=== PATIENT | female | born 1950 | race Caucasian/White ===

== ENCOUNTER 2017-12-11 11:25 | Outpatient (RCR) | payer MEDICARE, OTHER ==
[2017-12-07 08:47] VITALS: BP 137/68
[2017-12-07] MEDS: HEPARIN FLSH (PORT) 500 UN/5ML IVP PRN (09:15)
[2017-12-07] MEDS: LIDOCAINE/SOD BICARB 8.4% SYR ID PRN (09:15)
--- NOTE | 2017-12-07 16:54 | RADIOLOGY IMAGING REPORT ---
FACILITY: [facility] PATIENT NAME: Mavis Owusu : 1950 MR: [id number] V: [id number] EXAM DATE: ORDERING PHYSICIAN: CAT COSTA TECHNOLOGIST: Location: [facility] Patient: Mavis Owusu : 1950 Visit/Account:[id number] Date of Sevice: 12/07/2017 CHEST W/O CONTRAST History: Lung cancer TECHNIQUE: Contiguous axial images were performed through the chest to the level of the adrenal gla nds. No IV contrast was administered. Coronal and sagittal reformatting was also performed. Dose Lowe ring Technique One of the following dose optimization techniques was utilized in the performance of this exam: Autom ated exposure control; adjustment of the mA and/or kV according to the patient's size; or use of an i terative reconstruction technique. Specific details can be referenced in the facility's radiology C T exam operational policy. COMPARISON STUDIES: September 08, 2017. Lungs / Pleura: The irregular scarring in the right lung apex appears unchanged and represents the patient's treated malignancy. No new pulmonary masses are identified. No evidence of pleural effusi ons. There are mild emphysematous changes throughout the lungs. There is chronic wedge-shaped conso lidation in the medial lingula unchanged Mediastinum/nodes: Right IJ implanted port again noted. Heart and vessels: Coronary artery calcifications again noted. Mild to moderate calcifications in t he thoracic aorta and branch vessels Musculoskeletal / Body wall: Gentle dextroconvex scoliosis of the thoracic spine with spondylotic c hanges. Mild wedge deformity of T12 appears unchanged. There appears to be healing rib fracture ant erior left fifth rib appears unchanged. Upper abdomen: Hypoattenuating adrenal masses appear unchanged. There is a small sacculation in th e infrarenal abdominal aorta not included on the prior study IMPRESSION: Irregular scarring in the right lung apex appears unchanged when compared the prior study and represe nts the patient's treated malignancy. No new pulmonary masses are identified. Mild emphysematous changes but the lungs Chronic wedge-shaped consolidation in the medial lingula unchanged Mild to moderate vascular callus occasions throughout the aorta and branch vessels including the caitie nary arteries Hypoattenuating adrenal masses appear unchanged Report Dictated By: Gloria Squires MD at 12/07/2017 4:40 PM Report E-Signed By: Gloria Squires MD at 12/07/2017 4:50 PM WSN:[email or web address]
[~2017-12-11 11:25] MED LIST: ALTEPLASE RECOMB 2 MG VIAL IVP PRN; ASPI-757 PO; CEP250 PO; CEP500 PO; CORED RIGHT EAR; DEX4 PO; DEXA2TAB7 PO; DEXTROSE 5%(*) 100 ML BAG 100 ML IVPB PRN; GABA-549 PO; HYDR-385 PO; LEVO25TA61 PO; LEVO50TA86 PO; LEVO75TA73 PO; LORA-1456 PO; LUTE6CAP11 PO; LUTE6TAB PO; MEMA5TAB14 PO; METO-733 PO; NS(*) 0.9% 100 ML BAG 100 ML IVPB PRN; NS(*) 0.9% 500 ML BAG 500 ML IV PRN; ONDA8TAB91 PO; PYRI25TA18 PO; SULF-170 PO; WATER STERILE 10 ML VIAL IVP PRN
[2017-12-11 11:32] VITALS: BP 123/79
[2017-12-11] MEDS: LIDOCAINE/SOD BICARB 8.4% SYR ID PRN (11:46)
[2017-12-11] MEDS: HEPARIN FLSH (PORT) 500 UN/5ML IVP PRN (14:22)
--- NOTE | 2017-12-11 16:08 | RADIOLOGY IMAGING REPORT ---
FACILITY: [facility] PATIENT NAME: Mavis Owusu : 1950 MR: [id number] V: [id number] EXAM DATE: ORDERING PHYSICIAN: CAT COSTA TECHNOLOGIST: Location: [facility] Patient: Mavis Owusu : 1950 Visit/Account:[id number] Date of Sevice: 12/11/2017 EXAMINATION: MRI brain without IV contrast MRI brain with IV contrast HISTORY: Lung cancer follow-up. COMPARISON: Brain MRIs from 03/02/2017 and 09/10/2017. TECHNIQUE: Multi-planar, multi-sequence brain MRI was performed before and after IV gadolinium. CONTRAST: 15 mL of IV MultiHance gadolinium. FINDINGS: The exam is mildly limited by patient motion artifact. Brain volume: Mild generalized atrophy with associated concordant prominence of the ventricular syst em. Sagittal midline structures: Normal. Ventricles: Normal. Acute ischemic changes: None. Hemorrhage: Mild hemosiderin staining in the left cerebellar lesion is unchanged. Masses/edema/enhancement: There is intrinsic T1 hyperintensity in the left medial cerebellum at site of previously treated metastasis. There is no focal abnormal enhancement outside the T1 hyperintens ity. No adjacent T2/FLAIR hyperintensity. There are no new enhancing intracranial lesions. Small d evelopmental venous anomaly in the right basal ganglia is unchanged. Shaw-white: Negative. White matter: Patchy and confluent T2/FLAIR hyperintensities in the leigh ann and deep white matter bilat erally. Vessels: Normal. Extra-axial: None. Calvarium/scalp: Negative. Skull base: Negative. Visualized sinuses/orbits: Negative. Visualized upper neck: Negative. IMPRESSION: 1. Treated left cerebellar metastasis is unchanged, without residual enhancement. 2. No progression of disease or new intracranial metastases. 3. Moderate to severe nonspecific white matter disease could be due to chronic small vessel ischemia and/or treatment-related effect, and is unchanged. 4. No acute infarct or acute hemorrhage. Report Dictated By: Gretchen Winchester MD at 12/11/2017 3:58 PM Report E-Signed By: Gretchen Winchester MD at 12/11/2017 4:04 PM WSN:[id number]
== END 2017-12-15 09:52 | disposition home or self-care (01) ==
LOC: SPU 11:25
PROVIDERS: ATTEND Radiology Radiation Oncology
DX: C34.90 Malignant neoplasm of unspecified part of unspecified bronchus or lung (principal); R91.8 Other nonspecific abnormal finding of lung field; J43.9 Emphysema, unspecified; R90.82 White matter disease, unspecified
CPT/HCPCS: 36591; 70553; 71250; 82565; J1642; J7050; Q9967

== ENCOUNTER 2017-12-31 09:51 | Outpatient (RCR) | payer MEDICARE, OTHER ==
[2017-10-09 12:28] VITALS: BP 144/105
[2017-11-06 10:22] VITALS: BP 129/68
[~2017-12-31 09:51] MED LIST changes: +GADOBENATE 529MG/1ML 15ML VIAL IVP ONE; +HEPARIN FLSH (PORT) 500 UN/5ML IVP PRN; +IOPAMIDOL 76% 75 ML INFUS BTL 0 ML ONE; +LIDOCAINE/SOD BICARB 8.4% SYR ID PRN; +NS 0.9% 20 ML SDV 20 ML ONE
[2017-12-31 10:20] VITALS: BP 134/78
--- NOTE | 2017-12-31 18:58 | ONCOLOGY FOLLOW UP NOTE ---
EVENT DATE: December 31, 2017 DIAGNOSIS Limited stage small cell lung cancer CHIEF COMPLAINT The patient is here today for followup of her small cell lung cancer. ONCOLOGY HISTORY Ms. Owusu is a 67-year-old female referred by Dr. Mike Call for evaluation and treatment of squamous cell lung cancer. The patient noted a left supraclavicular mass about four weeks ago. She presented to her physician, and a CAT scan was performed. Unfortunately a very large 7 cm left upper lobe mass was noted with invasion into the pleural and 6 cm hilar mass as well. Additionally supraclavicular mass was appreciated. The patient underwent a CT scan guided biopsy demonstrating small cell lung cancer. The patient started chemotherapy with cisplatin and etoposide on February 27, 2014. The patient completed her radiation on May 15, 2014. Patient completed 8 courses of cisplatin and etoposide on August 17, 2014. The patient completed prophylactic cranial irradiation in September 2014. The patient developed brain metastasis and she received radiation therapy to her brain metastasis, completed on December 13, 2015. HISTORY OF PRESENT ILLNESS Patient is here today for followup of her small cell lung cancer. She is complaining of cough occasionally. She has also alternating diarrhea and constipation. She continues to have tingling and numbness in the hands and feet. She bruises easily, but other than that she is doing fine. She gained some weight lately. PAST MEDICAL HISTORY 1. Shingles. 2. Bronchitis. PAST SURGICAL HISTORY 1. Appendectomy. 2. Eye surgery. 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 She drinks one to two drinks per month. She smokes a pack per day for 35 years and is trying to quit. She does not chew or utilize recreational drugs. FAMILY HISTORY Mother with bilateral breast cancer. MEDICATIONS 1. Gabapentin 300 mg three times daily. 2. Levothyroxine 75 mcg daily. 3. Namenda 5 mg daily. 4. Ativan 1 mg p.r.n. q.4-6h. for anxiety or nausea or vomiting. 5. Zofran 8 mg q.12h. p.r.n. for nausea and vomiting. ALLERGIES NONE. REVIEW OF SYSTEMS CONSTITUTIONAL: No appetite or weight change. No fever, chills or sweating. No recent infection. HEENT: Ears: No tinnitus or hearing problem. Nose: She has nasal discharge in the morning. Throat: No sore throat or mouth ulcers. Eyes: No diplopia or visual changes. RESPIRATORY: The patient has some dry cough. CARDIOVASCULAR: No chest pain, orthopnea, or paroxysmal nocturnal dyspnea (PND) . No edema. No palpitations. GASTROINTESTINAL: She has alternating diarrhea and constipation. GENITOURINARY: No hematuria or dysuria. MUSCULOSKELETAL: No pain in the muscles, joints or bones. NEUROLOGICAL: She has tingling and numbness in the hands and feet. HEMATOLOGIC/LYMPHATIC: She bruises easily. SKIN: No skin rash or lumps. PSYCHIATRIC: No anxiety or depression. PHYSICAL EXAMINATION GENERAL: Looks stable. Well-developed, well-nourished, and in no acute distress. VITAL SIGNS: Blood pressure 134/78, pulse 71 per minute, respirations 16 per minute, temperature 97.3, pulse ox 90% on room air. HEENT: Head: Atraumatic. No sinus tenderness to palpation. Eyes: No icterus or conjunctivitis. Mouth and throat: No oral thrush or mucositis. NECK: Supple. No cervical or supraclavicular lymphadenopathy. LUNGS: Clear to auscultation and percussion bilaterally. HEART: Regular rate and rhythm. No gallops, murmurs, clicks or rubs. ABDOMEN: Soft and lax. No tenderness. No hepatosplenomegaly. No masses. EXTREMITIES: No cyanosis, clubbing or edema. LYMPHATICS: No peripheral lymphadenopathy. NEUROLOGICAL: Conscious, alert and oriented times three. No focal motor or sensory deficits. PSYCHIATRIC: Mood and affect appear normal. SKIN: No skin rash, bruise or purpuric eruption. DIAGNOSTIC DATA MRI of the brain done on December 11, 2017 showed treated left cerebellar metastasis without residual enhancement. CT chest December 03, 2017 showed unchanged right upper lobe scarring with unchanged consolidation of the left lingula and unchanged hypoattenuation adrenal masses. ASSESSMENT 1. Right cavitary mass of the right upper lobe diagnosed by PET scan on February 14, 2015. The size was 4.2 cm with SUV of 6.4. CT-guided biopsy on March 16, 2015 and April 02, 2015 came back positive for malignancy. Repeat CT scans March, November 24, 2016 showed that the mass was stable in size without any change, looks like there is some scarring there. Her CT chest done on December 07, 2017 showed stable right upper lobe scarring. Patient currently in remission. I am planning to see her again in three months with CBC, chem panel and chest x-ray. She is doing fine currently and she is gaining weight. 2. Extensive stage small cell lung cancer with brain metastasis. Patient received six cycles of cisplatin and RIBBON SWEATBAND OPERATOR-16 between February 27, 2014 through August 17, 2014. She received radiation therapy of the lung masses, completed May 15, 2014, and repeat PET scan July 10, 2015 did reveal residual mass decreased in size from 8.8 to 6 cm with residual SUV of 3. Patient received two more cycles of chemotherapy with cisplatin and RIBBON SWE[employer]PERATOR-16 completed August 17, 2014, and the nodule shrank from 4 cm to 3.4 cm, with SUV drop from 3 to 2.2. PET scan on February 14, 2015 showed that the SUV increased from 2.2 to 2.9. There was a new cavitary mass in the right upper lobe of the lung which was biopsied and the biopsy came back negative for malignancy. Her current CT chest showed unchanged scarring of the right upper lobe of the lung. There was unchanged consolidation of the lingula of the left lung. Patient currently considered in remission. I am planning to see her again in three months with chest x-ray. 4. Brain metastasis of the left cerebellum, status post radiation therapy, and her MRI of the brain on December 11, 2017 showed treated left cerebellar metastasis without residual enhancement. 5. Chemotherapy-induced neuropathy. Stable. She is currently on gabapentin, continue the same. PLAN 1. Continue followup. 2. Patient to return in three months with CBC, chem panel, chest x-ray. 3. Patient is to contact us for any new concerns or complaints. MTDD
== END 2018-01-06 ==
LOC: ONC 09:51
PROVIDERS: ATTEND Internal Medicine Hematology
DX: Z85.118 Personal history of other malignant neoplasm of bronchus and lung (principal); C79.31 Secondary malignant neoplasm of brain; Z92.21 Personal history of antineoplastic chemotherapy; Z92.3 Personal history of irradiation; G62.0 Drug-induced polyneuropathy; R19.7 Diarrhea, unspecified; K59.00 Constipation, unspecified; F17.210 Nicotine dependence, cigarettes, uncomplicated; R05 Cough
CPT/HCPCS: 96523; A9577; G0463; J1642; 99212; J7050; Q9967

== ENCOUNTER 2018-03-09 10:18 | Outpatient (RCR) | payer MEDICARE, OTHER ==
[2018-03-01 09:20] VITALS: BP 137/70
--- NOTE | 2018-03-01 13:36 | RADIOLOGY IMAGING REPORT ---
FACILITY: [facility] [place] PATIENT NAME: Mavis Owusu : 1950 MR: [id number] V: [id number] EXAM DATE: ORDERING PHYSICIAN: ADEBAYO MATA TECHNOLOGIST: Location: [facility] Patient: Mavis Owusu : 1950 Visit/Account:[id number] Date of Sevice: 03/01/2018 EXAMINATION: MRI brain without IV contrast MRI brain with IV contrast HISTORY: Lung cancer follow-up. COMPARISON: Brain MRIs from 09/10/2017 and 12/11/2017. TECHNIQUE: Multi-planar, multi-sequence brain MRI was performed before and after IV gadolinium. CONTRAST: 15 mL of IV MultiHance gadolinium. FINDINGS: Brain volume: Mild generalized atrophy with associated concordant prominence of the ventricular syst em. Sagittal midline structures: Normal. Ventricles: Normal. Acute ischemic changes: None. Hemorrhage: Mild hemosiderin staining in the left cerebellar lesion, unchanged. Masses/edema/enhancement: The enhanced images are limited by patient motion artifact. Intrinsic T1 hyperintensity in the left medial cerebellum, without additional abnormal enhancement is unchanged. There is no new T2/FLAIR hyperintensity. No new enhancing intracranial lesions. Small developmental venous anomaly in the right basal ganglia. Shaw-white: Negative. White matter: Patchy and confluent T2/FLAIR hyperintensities in the leigh ann and deep white matter bilat erally. Vessels: Normal. Extra-axial: None. Calvarium/scalp: Negative. Skull base: Negative. Visualized sinuses/orbits: Negative. Visualized upper neck: Negative. IMPRESSION: 1. Treated left cerebellar metastasis is unchanged. 2. No progression of disease or new intracranial metastases. 3. Moderate to severe nonspecific white matter disease could be due to chronic small vessel ischemia and/or treatment-related effects, and is unchanged. 4. No acute infarct or acute hemorrhage. Report Dictated By: Gretchen Winchester MD at 03/01/2018 1:25 PM Report E-Signed By: Gretchen Winchester MD at 03/01/2018 1:31 PM WSN:[id number]
--- NOTE | 2018-03-01 16:54 | RADIOLOGY IMAGING REPORT ---
FACILITY: [facility] [place] PATIENT NAME: Mavis Owusu : 1950 MR: [id number] V: [id number] EXAM DATE: ORDERING PHYSICIAN: ADEBAYO MATA TECHNOLOGIST: Location: [facility] [place] Patient: Mavis Owusu : 1950 Visit/Account:[id number] Date of Sevice: 03/01/2018 CHEST W/O CONTRAST History: Lung cancer checkup TECHNIQUE: Contiguous axial images were performed through the chest to the level of the adrenal gla nds. No IV contrast was administered. Coronal and sagittal reformatting was also performed. Dose Lowe ring Technique One of the following dose optimization techniques was utilized in the performance of this exam: Autom ated exposure control; adjustment of the mA and/or kV according to the patient's size; or use of an i terative reconstruction technique. Specific details can be referenced in the facility's radiology C T exam operational policy. COMPARISON STUDIES: December 07, 2017. Lungs / Pleura: Irregular scarring in the right pulmonary apex appears unchanged. Mild emphysemato us changes are seen throughout the lungs. There is a chronic wedge-shaped area of consolidation in t he medial lingula also remains unchanged small amount of retained secretions are seen in the posterio r trachea and left left main bronchus. Mediastinum/nodes: 1.6 cm inferior right thyroid nodule is noted Heart and vessels: Multiple moderate vascular calcifications in the thoracic aorta and branch vessel s including the coronary arteries. Musculoskeletal / Body wall: Gentle dextroconvex scoliosis of the thoracic spine with spondylotic c hanges. Mild chronic wedging of T12 Upper abdomen: Hypoattenuating adrenal nodules appear unchanged IMPRESSION: Irregular scarring in the right pulmonary apex appears unchanged when compared the prior study. No n ew pulmonary masses are seen. Chronic wedge-shaped consolidation in the medial lingula unchanged Mild emphysematous changes but the lungs Hypoattenuating bilateral adrenal masses are unchanged 1.6 cm inferior right thyroid nodule. If of concern ultrasound of the thyroid may be helpful Report Dictated By: Gloria Squires MD at 03/01/2018 4:39 PM Report E-Signed By: Gloria Squires MD at 03/01/2018 4:49 PM WSN:[email or web address]
[~2018-03-09 10:18] MED LIST changes: -IOPAMIDOL 76% 75 ML INFUS BTL 0 ML ONE; -NS 0.9% 20 ML SDV 20 ML ONE; +WATER FOR INJ,STERILE 20 ML IVP PRN; -WATER STERILE 10 ML VIAL IVP PRN
== END 2018-03-14 ==
LOC: RAON 10:18
PROVIDERS: ATTEND Radiology Radiation Oncology
DX: Z85.118 Personal history of other malignant neoplasm of bronchus and lung (principal); F17.210 Nicotine dependence, cigarettes, uncomplicated; Z92.3 Personal history of irradiation; E04.1 Nontoxic single thyroid nodule; R91.8 Other nonspecific abnormal finding of lung field
CPT/HCPCS: 70553; 71250; 82565; 84436; 84443; 84480; A9577; G0463; J1642; J2997; 99212

== ENCOUNTER → 2018-04-07 | Outpatient (CLI) | payer MEDICARE, OTHER ==
[~2018-04-07] MED LIST changes: -ALTEPLASE RECOMB 2 MG VIAL IVP PRN; -DEXTROSE 5%(*) 100 ML BAG 100 ML IVPB PRN; -GADOBENATE 529MG/1ML 15ML VIAL IVP ONE; -HEPARIN FLSH (PORT) 500 UN/5ML IVP PRN; -LIDOCAINE/SOD BICARB 8.4% SYR ID PRN; -NS(*) 0.9% 100 ML BAG 100 ML IVPB PRN; -NS(*) 0.9% 500 ML BAG 500 ML IV PRN; -WATER FOR INJ,STERILE 20 ML IVP PRN
--- NOTE | 2018-04-07 16:17 | RADIOLOGY IMAGING REPORT ---
FACILITY: [facility] PATIENT NAME: Mavis Owusu : 1950 MR: [id number] V: [id number] EXAM DATE: ORDERING PHYSICIAN: ADEBAYO MATA TECHNOLOGIST: Location: [facility] [place] Patient: Mavis Owusu : 1950 Visit/Account:[id number] Date of Sevice: 04/07/2018 Exam type: CHEST PA AND LAT History: Lung cancer follow-up Comparison: Two view chest September 10, 2017. Findings: Pleural parenchymal opacity in the right pulmonary apex of appears similar to the prior study apparen tly related to patient's treated lung cancer. There is mild hyperexpansion the lung villalba. No acut e pulmonary consolidation seen. There is no evidence of pleural effusions or overt pulmonary edema. Cardiac silhouette is normal in size. There are mild to moderate spondylotic changes of the thoraci c spine IMPRESSION: 1. No parenchymal opacity in the right pulmonary apex appears stable and apparently related to patie nt's treated lung cancer Report Dictated By: Gloria Squires MD at 04/07/2018 4:10 PM Report E-Signed By: Gloria Squires MD at 04/07/2018 4:13 PM WSN:[email or web address]
== END ==
LOC: RAD 14:03
PROVIDERS: ATTEND Radiology Radiation Oncology
DX: C34.90 Malignant neoplasm of unspecified part of unspecified bronchus or lung (principal); C34.10 Malignant neoplasm of upper lobe, unspecified bronchus or lung
CPT/HCPCS: 71046

== ENCOUNTER 2018-04-09 10:26 | Outpatient (RCR) | payer MEDICARE, OTHER ==
[2018-01-26 11:01] VITALS: BP 104/65
[2018-01-26] MEDS: LIDOCAINE/SOD BICARB 8.4% SYR ID PRN (11:13)
[2018-01-26] MEDS: HEPARIN FLSH (PORT) 500 UN/5ML IVP PRN (11:14)
[2018-04-07 13:05] LABS: PLATELET COUNT, AUTOMATED 126 K/uL (150-450)
[2018-04-07] MEDS: HEPARIN FLSH (PORT) 500 UN/5ML IVP PRN (15:36)
[2018-04-07] MEDS: LIDOCAINE/SOD BICARB 8.4% SYR ID PRN (15:36)
[2018-04-07 16:21] VITALS: BP 105/72
[~2018-04-09 10:26] MED LIST changes: +ALTEPLASE RECOMB 2 MG VIAL IVP PRN; +DEXTROSE 5%(*) 100 ML BAG 100 ML IVPB PRN; +NS(*) 0.9% 100 ML BAG 100 ML IVPB PRN; +NS(*) 0.9% 500 ML BAG 500 ML IV PRN; +WATER FOR INJ,STERILE 20 ML IVP PRN
[2018-04-09 10:41] VITALS: BP 117/69
--- NOTE | 2018-04-09 16:11 | ONCOLOGY FOLLOW UP NOTE ---
EVENT DATE: April 09, 2018 DIAGNOSIS Limited stage small cell lung cancer CHIEF COMPLAINT The patient is here today for followup of her small cell lung cancer. ONCOLOGY HISTORY Ms. Owusu is a 68-year-old female referred by Dr. Mike Call for evaluation and treatment of squamous cell lung cancer. The patient noted a left supraclavicular mass about four weeks ago. She presented to her physician, and a CAT scan was performed. Unfortunately a very large 7 cm left upper lobe mass was noted with invasion into the pleural and 6 cm hilar mass as well. Additionally supraclavicular mass was appreciated. The patient underwent a CT scan guided biopsy demonstrating small cell lung cancer. The patient started chemotherapy with cisplatin and etoposide on February 27, 2014. The patient completed her radiation on May 15, 2014. Patient completed 8 courses of cisplatin and etoposide on August 17, 2014. The patient completed prophylactic cranial irradiation in September 2014. The patient developed brain metastasis and she received radiation therapy to her brain metastasis, completed on December 13, 2015. HISTORY OF PRESENT ILLNESS Patient is here today for followup of her small cell lung cancer. She is doing fine currently. She is complaining of occasional cough with expectoration. She continues to have neuropathy in her hands and feet with tingling and and numbness. She bruises easily. PAST MEDICAL HISTORY 1. Shingles. 2. Bronchitis. PAST SURGICAL HISTORY 1. Appendectomy. 2. Eye surgery. 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 She drinks one to two drinks per month. She smokes a pack per day for 35 years and is trying to quit. She does not chew or utilize recreational drugs. FAMILY HISTORY Mother with bilateral breast cancer. MEDICATIONS 1. Gabapentin 300 mg three times daily. 2. Levothyroxine 75 mcg daily. 3. Namenda 5 mg daily. 4. Ativan 1 mg p.r.n. q.4-6h. for anxiety or nausea or vomiting. 5. Zofran 8 mg q.12h. p.r.n. for nausea and vomiting. ALLERGIES NONE. REVIEW OF SYSTEMS CONSTITUTIONAL: No appetite or weight change. No fever, chills or sweating. No recent infection. HEENT: Ears: No tinnitus or hearing problem. Nose: She has nasal discharge in the morning. Throat: No sore throat or mouth ulcers. Eyes: No diplopia or visual changes. RESPIRATORY: She has cough with expectoration occasionally. CARDIOVASCULAR: No chest pain, orthopnea, or paroxysmal nocturnal dyspnea (PND) . No edema. No palpitations. GASTROINTESTINAL: She has alternating diarrhea and constipation. GENITOURINARY: No hematuria or dysuria. MUSCULOSKELETAL: No pain in the muscles, joints or bones. NEUROLOGICAL: She has tingling and numbness in the hands and feet. HEMATOLOGIC/LYMPHATIC: She bruises easily. SKIN: No skin rash or lumps. PSYCHIATRIC: No anxiety or depression. PHYSICAL EXAMINATION GENERAL: Looks stable. Well-developed, well-nourished, and in no acute distress. VITAL SIGNS: Blood pressure 117/69, pulse 73 per minute, respirations 16 per minute, temperature 98.6, pulse ox 90% on room air. HEENT: Head: Atraumatic. No sinus tenderness to palpation. Eyes: No icterus or conjunctivitis. Mouth and throat: No oral thrush or mucositis. NECK: Supple. No cervical or supraclavicular lymphadenopathy. LUNGS: Clear to auscultation and percussion bilaterally. HEART: Regular rate and rhythm. No gallops, murmurs, clicks or rubs. ABDOMEN: Soft and lax. No tenderness. No hepatosplenomegaly. No masses. EXTREMITIES: No cyanosis, clubbing or edema. LYMPHATICS: No peripheral lymphadenopathy. NEUROLOGICAL: Conscious, alert and oriented times three. No focal motor or sensory deficits. PSYCHIATRIC: Mood and affect appear normal. SKIN: No skin rash, bruise or purpuric eruption. DIAGNOSTIC DATA CBC showed white count 5.4, hemoglobin 14.3, hematocrit 41, platelets 126,000. Chem panel totally normal except sodium 133, creatinine 1.4, alkaline phosphatase 129. Chest x-ray on April 07, 2018 was stable without any new changes. ASSESSMENT 1. Right cavitary mass of the right upper lobe diagnosed by PET scan on February 14, 2015. The size was 4.2 cm with SUV of 6.4. CT-guided biopsy on March 16, 2015 and April 02, 2015 came back positive for malignancy. Repeat CT scans March, November 24, 2016 showed that the mass was stable in size without any changes. Looks like there is some scarring there. CT scan December 07, 2017 showed stable right upper lobe scarring. Chest x-ray April 07, 2018 was stable. I am planning to continue followup. I will see her again in three months with CBC, chem panel and CT chest at that time. Patient clinically is doing very well. 2. Extensive stage small cell lung cancer with brain metastasis. Patient received six cycles of cisplatin and REBEAMER-16 between February 27, 2014 through August 17, 2014. She received radiation therapy of the lung masses, completed May 15, 2014, and repeat PET scan July 10, 2015 did reveal residual mass decreased in size from 8.8 to 6 cm with residual SUV of 3. Patient received two more cycles of chemotherapy with cisplatin and REBEAMER-16 completed August 17, 2014, and the nodule shrank from 4 cm to 3.4 cm, with SUV drop from 3 to 2.2. PET scan on February 14, 2015 showed that the SUV increased from 2.2 to 2.9. There was a new cavitary mass in the right upper lobe of the lung which was biopsied and the biopsy came back negative for malignancy. Her current CT chest did not show any new changes. Her chest x-ray April 07, 2018 was also stable. I am planning to get a CT scan with her next visit in three months together with CBC and chem panel. 3. Brain metastasis of the left cerebellum, status post radiation therapy. Her MRI December 11, 2017 showed treated left cerebellar metastasis without residual enhancement. 4. Chemotherapy-induced neuropathy which is stable. We will continue gabapentin. PLAN 1. Continue followup. 2. Patient to return in three months with CBC, chem panel and CT chest with IV contrast. 3. Patient is to contact us for any new concerns or complaints. [facility]
== END 2018-04-13 10:14 | disposition home or self-care (01) ==
LOC: ONC 10:26
PROVIDERS: ATTEND Internal Medicine Hematology
DX: C34.10 Malignant neoplasm of upper lobe, unspecified bronchus or lung (principal); C79.31 Secondary malignant neoplasm of brain; Z92.21 Personal history of antineoplastic chemotherapy; Z92.3 Personal history of irradiation; G62.0 Drug-induced polyneuropathy
CPT/HCPCS: 36591; 85025; G0463; J1642; 71046; 82040; 82247; 82310; 82374; 82435; 82565; 82947; 84075; 84132; 84155; 84295; 84450; 84460; 84520; 96523; 99212

== ENCOUNTER 2018-05-03 13:00 | Outpatient (RCR) | payer MEDICARE, OTHER ==
--- NOTE | 2018-02-04 15:48 | PT INITIAL EVALUATION ---
MEDICAL DIAGNOSIS: Dizziness and Imbalance TREATMENT DIAGNOSIS: Generalized Weakness, Decreased Balance, Unsteady Gait DATE OF ONSET: 01/27/18 SUBJECTIVE: Mavis is a 68 year old female presenting to physical therapy following completion of chemotherapy and radiation therapy for small cell lung cancer resulting in generalized weakness and loss of balance. Additionally pt developed brain mets which she attributes to her decreased balance. Pt reports that she has fallen at least every month this year and typically gets dizzy if she gets up too fast or changes position too fast. Pt reports that most of her falls have been secondary to her knees "giving out" on her when walking or standing or that she gets going to fast when walking and can't stop. Pt denies any pain at this time or injury. REHAB PROBLEM LIST: Decreased Strength Impaired Transfers Decreased Endurance Decreased Balance Decreased Function Decreased ADL's Decreased Mobility Decreased Gait PREVIOUS MEDICAL HISTORY: See EMR OBJECTIVE: Posture: Forward trunk lean with rounded shoulders and forward head. ROM: LE ROM: WFL Strength: LE MMT: Hip: flexion: B 4-/5, extension: B 4-/5, abduction: B 4/5, adduction: B 4-/5, Knee: extension: B 4-/5, flexion: B 4/5, Ankle: DF: B 4+/5, PF: B 3+/5 Sensation: Pt reports neuropathy in fingers and toes. Special Tests: Dynamic Gait Index (DGI): 10/01 Mobility: Pt transfers from seated>standing without use of B UE but with knees buckling, transfers from standing<seated with rapid descent and B use of UE. Gait: Pt ambulates with small stride length and decreased foot clearance B. With progression of gait pt develops forward trunk lean resulting in increased speed which pt cannot maintain with feet. Gait has minimal deviations laterally which increase with fatigue. Pt occasionally uses SPC with ambulation when surfaces are uneven. Balance: 4 Stage Balance Test highest level: L tandem 3 sec, R tandem 8 sec. ASSESSMENT: Pt demonstrates signs and symptoms consistent with generalized weakness and imbalanced gait as illustrated by the above listed deficits. Physical therapy is indicated to improve pt function with ADL's and mobility and decrease fall risk. Short Term Goals In 3 weeks pt will be able to stand 10 minutes without B UE support while performing UE reaching activities for increased function in ADL's including washing dishes. In 3 weeks pt will improve 4 stage balance test to tandem balance of >15 seconds B and SLS of 5 seconds B for improved balance with ADL's and ambulation. In 6 weeks pt will be able to walk on uneven and variable surfaces such as grass and foam without any episodes of LOB for improved functional mobility. In 6 weeks pt will improve DGI score to >18/30 for improved functional ambulation with ADL's and decreased fall risk. Patient's Goals Be able to stand and do dishes without needing a rest break, increase strength , decrease fall frequency, be able to walk on uneven surfaces. PLAN: Patient to be seen for Manual Therapy/STM/MET Strengthening/condition Ice/Heat Range of Motion Spinal Stabilization Ultrasound Stretching Iontophoresis Neuromuscular Re-ed Closed Chain Program Electrical Stim Posture/Body mechanics Gait Trg/Balance Trg Biofeedback Home Exercise Program [facility]./Manual Traction Therapeutic Activities Pelvic Floor 3x/Week for 6 Weeks If you have any questions, comments, or concerns about this report or plan, please contact me at . Thank you, Dorinda Klein, PT, DPT, CLT SALINAS
--- NOTE | 2018-02-26 17:26 | PT PLAN OF CARE ---
Physician: Mike Call MD Patient is being seen: 2-3x/Week Therapist: Dorinda Klein, PT, DPT, CLT Medical Diagnosis: Dizziness and Imbalance Treatment Diagnosis: Generalized Weakness, Decreased Balance, Unsteady Gait Date of Onset: 01/27/18 Date of Initial Evaluation: 02/04/18 Date patient was last seen: 02/26/18 Number of treatments: 10 Number of cancellations/No shows: 1 INTERVENTIONS: Manual Therapy/STM/MET Strengthening/condition Ice/Heat Range of Motion Spinal Stabilization Ultrasound Stretching Iontophoresis Neuromuscular Re-ed Closed Chain Program Electrical Stim Posture/Body mechanics Gait Trg/Balance Trg Biofeedback Home Exercise Program Mech./Manual Traction Therapeutic Activities Pelvic Floor GOALS: In 3 weeks pt will be able to stand 10 minutes without B UE support while performing UE reaching activities for increased function in ADL's including washing dishes. MET In 3 weeks pt will improve 4 stage balance test to tandem balance of >15 seconds B and SLS of 5 seconds B for improved balance with ADL's and ambulation. In 6 weeks pt will be able to walk on uneven and variable surfaces such as grass and foam without any episodes of LOB for improved functional mobility. In 6 weeks pt will improve FGA score to >18/30 for improved functional ambulation with ADL's and decreased fall risk. PATIENT'S GOAL: Be able to stand and do dishes without needing a rest break, increase strength , decrease fall frequency, be able to walk on uneven surfaces. Status of Patient's Goals:11/05 MET Patient Compliance: Good Prognosis: Good Reasons for continuing therapy: Mavis shows good progress with gait mechanics and stability without any incidence of falls since the initiation of PT services. Gait shows improvement, however pt is still prone to shuffling of gait and forward trunk lean when distracted. Further PT is indicated to improve functional ambulation in the community as well as stationary balance for performance of ADL's. Posture: Forward trunk lean with rounded shoulders and forward head. ROM: LE ROM: WFL Strength: LE MMT: Hip: flexion: L 4+/5 R 5/5, extension: B 4-/5, abduction: B 4/ 5, adduction: B 4-/5, Knee: extension: L 4+/5, R 5/5, flexion: B 4/5, Ankle: DF : B 4+/5, PF: B 3+/5 Balance: 4 Stage Balance Test: Tandem maximal: L fwd: 5 sec, R fwd 3 sec Special Tests: Functional Gait Assessment (FGA): 10/01 Dynamic Gait Index: Mobility: Pt transfers from seated>standing without use of B UE but with knees buckling, transfers from standing<seated with rapid descent and B use of UE. If you have any questions or concerns, please feel free to contact me at . Thank you, Dorinda Klein, PT, DPT, CLT MTDD
--- NOTE | 2018-04-13 08:49 | PT PLAN OF CARE ---
Physician: Mike Call MD Patient is being seen: 2-3x/Week Therapist: Dorinda Klein, PT, DPT, CLT Medical Diagnosis: Dizziness and Imbalance Treatment Diagnosis: Generalized Weakness, Decreased Balance, Unsteady Gait Date of Onset: 01/27/18 Date of Initial Evaluation: 02/04/18 Date patient was last seen: 04/12/18 Number of treatments: 20 Number of cancellations/No shows: 3 INTERVENTIONS: Manual Therapy/STM/MET Strengthening/condition Ice/Heat Range of Motion Spinal Stabilization Ultrasound Stretching Iontophoresis Neuromuscular Re-ed Closed Chain Program Electrical Stim Posture/Body mechanics Gait Trg/Balance Trg Biofeedback Home Exercise Program Mech./Manual Traction Therapeutic Activities Pelvic Floor GOALS: In 3 weeks pt will be able to stand 10 minutes without B UE support while performing UE reaching activities for increased function in ADL's including washing dishes. MET In 3 weeks pt will improve 4 stage balance test to tandem balance of >15 seconds B and SLS of 5 seconds B for improved balance with ADL's and ambulation. Partially MET In 6 weeks pt will be able to walk on uneven and variable surfaces such as grass and foam without any episodes of LOB for improved functional mobility. In 6 weeks pt will improve FGA score to >18/30 for improved functional ambulation with ADL's and decreased fall risk. MET PATIENT'S GOAL: Be able to stand and do dishes without needing a rest break, increase strength , decrease fall frequency, be able to walk on uneven surfaces. Status of Patient's Goals: 2/4 MET Patient Compliance: Good Prognosis: Good Reasons for continuing therapy: Mavis shows gradual improvements in step length and foot clearance with ambulation resulting in decreased risk of falls. Posturally pt also shows improvements in awareness with pt able to correct posture with cuing to upright decreasing fall risk with static stance and ambulation. Further PT is indicated to address lingering deficits including balance as well as strength with good progress towards both. PT balance with narrowed SERGIO is significancy increased, however single leg balance is still low. LE strength shows improvement with functional transfers from low surfaces. At this time pt is still quick to fatigue with exercise. Posture: Forward trunk lean with rounded shoulders and forward head. ROM: LE ROM: WFL Strength: LE MMT: Hip: flexion: L 5/5 R 4+/5, extension: B 4-/5, abduction: B 5/ 5, adduction: B 4+/5, Knee: extension: L 4/5, R 4+/5, flexion: L 4/5, R 4+/5, Ankle: DF: B 5/5, PF: R 4+/5, L 4/5 Balance: 4 Stage Balance Test: Tandem: L fwd: 25 sec, R fwd 28 sec, SLS: L 3 sec , R 5 sec Special Tests: Functional Gait Assessment (FGA): Dynamic Gait Index: Mobility: Pt transfers from seated>standing without use of B UE but with knees buckling, transfers from standing<seated with rapid descent and B use of UE. If you have any questions or concerns, please feel free to contact me at . Thank you, Dorinda Klein, PT, DPT, CLT MTDD
[~2018-05-03 13:00] MED LIST changes: -ALTEPLASE RECOMB 2 MG VIAL IVP PRN; -DEXTROSE 5%(*) 100 ML BAG 100 ML IVPB PRN; -NS(*) 0.9% 100 ML BAG 100 ML IVPB PRN; -NS(*) 0.9% 500 ML BAG 500 ML IV PRN; -WATER FOR INJ,STERILE 20 ML IVP PRN
== END 2018-05-05 ==
LOC: PT 13:00
PROVIDERS: ATTEND Family Medicine
DX: R26.89 Other abnormalities of gait and mobility (principal); R42 Dizziness and giddiness; R53.1 Weakness; C34.90 Malignant neoplasm of unspecified part of unspecified bronchus or lung; C79.31 Secondary malignant neoplasm of brain; R29.6 Repeated falls
CPT/HCPCS: 97162

== ENCOUNTER 2018-06-04 13:00 | Outpatient (RCR) | payer MEDICARE, OTHER ==
--- NOTE | 2018-05-07 15:48 | PT PLAN OF CARE ---
Physician: Mike Call MD Patient is being seen: 2-3x/Week Therapist: Dorinda Klein, PT, DPT, CLT Medical Diagnosis: Dizziness and Imbalance Treatment Diagnosis: Generalized Weakness, Decreased Balance, Unsteady Gait Date of Onset: 01/27/18 Date of Initial Evaluation: 02/04/18 Date patient was last seen: 05/07/18 Number of treatments: 29 Number of cancellations/No shows: 4 INTERVENTIONS: Manual Therapy/STM/MET Strengthening/condition Ice/Heat Range of Motion Spinal Stabilization Ultrasound Stretching Iontophoresis Neuromuscular Re-ed Closed Chain Program Electrical Stim Posture/Body mechanics Gait Trg/Balance Trg Biofeedback Home Exercise Program Mech./Manual Traction Therapeutic Activities Pelvic Floor GOALS: In 3 weeks pt will be able to stand 10 minutes without B UE support while performing UE reaching activities for increased function in ADL's including washing dishes. MET In 3 weeks pt will improve 4 stage balance test to tandem balance of >15 seconds B and SLS of 5 seconds B for improved balance with ADL's and ambulation. Partially MET In 6 weeks pt will be able to walk on uneven and variable surfaces such as grass and foam without any episodes of LOB for improved functional mobility and community ambulation. In 6 weeks pt will improve FGA score to >18/30 for improved functional ambulation with ADL's and decreased fall risk. MET PATIENT'S GOAL: Be able to stand and do dishes without needing a rest break, increase strength , decrease fall frequency, be able to walk on uneven surfaces. Status of Patient's Goals: 2/4 MET Patient Compliance: Good Prognosis: Good Reasons for continuing therapy: Mavis continues to show improvements in strength and stability with ADL's and ambulation. Pt gait mechanics has little change without cuing, however with pt attention focus on mechanics however there are significant improvements on step length and foot clearance. Pt shows improved ease with transfers as well as decreased fall risk. Further PT to progress towards independent exercise program as well as increased safety with community ambulation. Posture: Forward trunk lean with rounded shoulders and forward head. ROM: LE ROM: WFL Strength: LE MMT: Hip: flexion: L 5/5 R 4+/5, extension: B 4/5, abduction: B 5/5 , adduction: B 4+/5, Knee: extension: L 4/5, R 4+/5, flexion: L 4/5, R 4+/5, Ankle: DF: B 5/5, PF: R 4+/5, L 4/5 Balance: 4 Stage Balance Test: Tandem: L fwd: 30 sec, R fwd 30 sec, SLS: L 3 sec , R 6 sec Special Tests: Functional Gait Assessment (FGA): Dynamic Gait Index: Mobility: Pt transfers from seated>standing without use of B UE If you have any questions or concerns, please feel free to contact me at . Thank you, Dorinda Klein, PT, DPT, CLT MTDD
--- NOTE | 2018-06-07 14:01 | PT PLAN OF CARE ---
Physician: Mike Call MD Patient is being seen: 2-3x/Week Therapist: Dorinda Klein, PT, DPT, CLT Medical Diagnosis: Dizziness and Imbalance Treatment Diagnosis: Generalized Weakness, Decreased Balance, Unsteady Gait Date of Onset: 01/27/18 Date of Initial Evaluation: 02/04/18 Date patient was last seen: 06/04/18 Number of treatments: 40 Number of cancellations/No shows: 4 INTERVENTIONS: Manual Therapy/STM/MET Strengthening/condition Ice/Heat Range of Motion Spinal Stabilization Ultrasound Stretching Iontophoresis Neuromuscular Re-ed Closed Chain Program Electrical Stim Posture/Body mechanics Gait Trg/Balance Trg Biofeedback Home Exercise Program Mech./Manual Traction Therapeutic Activities Pelvic Floor GOALS: In 3 weeks pt will be able to stand 10 minutes without B UE support while performing UE reaching activities for increased function in ADL's including washing dishes. MET In 3 weeks pt will improve 4 stage balance test to tandem balance of >15 seconds B and SLS of 5 seconds B for improved balance with ADL's and ambulation. MET In 6 weeks pt will be able to walk on uneven and variable surfaces such as grass and foam without any episodes of LOB for improved functional mobility and community ambulation. MET In 6 weeks pt will improve FGA score to >18/30 for improved functional ambulation with ADL's and decreased fall risk. MET PATIENT'S GOAL: Be able to stand and do dishes without needing a rest break, increase strength , decrease fall frequency, be able to walk on uneven surfaces. Status of Patient's Goals: 4/4 MET Patient Compliance: Good Prognosis: Good Reasons for discharge from therapy: Mavis from physical therapy at this time secondary to completion /4 functional goals. At the time of discharge pt showed improvements in strength and stability with ADL's and ambulation. With pt focus gait mechanics showed improved step length, height and decreased SERGIO. Pt is able to ambulate on all surfaces including grass, side-walk, loose gravel and up and down hills without any episodes of LOB. Pt stability with ADL's such as cooking and self care are improved with normal and narrowed SERGIO. At the time of discharge pt started developing deficits with oxygen saturation with levels lingering in the low 80% range. Pt PCP and Oncology MD contacted for further assessment. Upon discharge pt is to continue with HEP to maintain functional levels of strength and stability. Posture: Forward trunk lean with rounded shoulders and forward head. ROM: LE ROM: WFL Strength: LE MMT: Hip: flexion: L 5/5 R 4+/5, extension: B 4/5, abduction: B 5/5 , adduction: B 4+/5, Knee: extension: L 4/5, R 4+/5, flexion: L 4/5, R 4+/5, Ankle: DF: B 5/5, PF: R 4+/5, L 4/5 Balance: 4 Stage Balance Test: Tandem: L fwd: 30 sec, R fwd 30 sec, SLS: L 17 sec, R 6 sec Special Tests: Functional Gait Assessment (FGA): Dynamic Gait Index: Mobility: Pt transfers from seated>standing without use of B UE If you have any questions or concerns, please feel free to contact me at . Thank you, Dorinda Klein, PT, DPT, CLT MTDD
== END 2018-06-04 18:00 | disposition home or self-care (01) ==
LOC: PT 13:00
PROVIDERS: ATTEND Family Medicine
DX: R26.89 Other abnormalities of gait and mobility (principal); R42 Dizziness and giddiness; R53.1 Weakness; C34.90 Malignant neoplasm of unspecified part of unspecified bronchus or lung; C79.31 Secondary malignant neoplasm of brain; R29.6 Repeated falls

== ENCOUNTER 2018-07-09 10:19 | Outpatient (RCR) | payer MEDICARE, OTHER ==
[2018-07-02 09:50] VITALS: BP 120/73
[2018-07-02] MEDS: LIDOCAINE/SOD BICARB 8.4% SYR ID PRN (10:04)
--- NOTE | 2018-07-02 17:37 | RADIOLOGY IMAGING REPORT ---
FACILITY: [facility] PATIENT NAME: Mavis Owusu : 1950 MR: [id number] V: [id number] EXAM DATE: ORDERING PHYSICIAN: EN MOSS TECHNOLOGIST: Location: [facility] Patient: Mavis Owusu : 1950 Visit/Account:[id number] Date of Sevice: 07/02/2018 EXAMINATION: MRI brain without IV contrast MRI brain with IV contrast HISTORY: Lung cancer with brain metastases. COMPARISON: Brain MRIs from 12/11/2017 and 03/01/2018. TECHNIQUE: Multi-planar, multi-sequence brain MRI was performed before and after IV gadolinium. CONTRAST: 15 mL of IV MultiHance gadolinium. FINDINGS: Brain volume: Mild generalized atrophy with associated concordant prominence of the ventricular syst em. Sagittal midline structures: Normal. Ventricles: Normal. Acute ischemic changes: None. Hemorrhage: Mild hemosiderin staining in the left cerebellar lesion is unchanged. Masses/edema/enhancement: Intrinsic T1 hyperintensity in the left medial cerebellum without addition al abnormal enhancement is unchanged. There are no new enhancing lesions. Small developmental venous anomaly in the right basal ganglia. Shaw-white: Negative. White matter: Patchy T2/FLAIR hyperintensities in the leigh ann and deep white matter bilaterally. Vessels: Normal. Extra-axial: None. Calvarium/scalp: Negative. Skull base: Negative. Visualized sinuses/orbits: Negative. Visualized upper neck: Negative. IMPRESSION: 1. Treated left cerebellar metastasis is unchanged. 2. No progression of disease or new intracranial metastases. 3. Moderate to severe nonspecific white matter disease is suspicious for chronic small vessel ischemi a and/or treatment-related effects, and is unchanged. 4. No acute infarct or acute hemorrhage. Report Dictated By: Gretchen Winchester MD at 07/02/2018 5:30 PM Report E-Signed By: Gretchen Winchester MD at 07/02/2018 5:34 PM [id number]
[2018-07-07] MEDS: LIDOCAINE/SOD BICARB 8.4% SYR ID PRN (08:53)
[2018-07-07 09:07] LABS: PLATELET COUNT, AUTOMATED 131 K/uL (150-450)
--- NOTE | 2018-07-07 13:26 | RADIOLOGY IMAGING REPORT ---
FACILITY: [facility] PATIENT NAME: Mavis Owusu : 1950 MR: [id number] V: [id number] EXAM DATE: ORDERING PHYSICIAN: EN MOSS TECHNOLOGIST: Location: [facility] [place] Patient: Mavis Owusu : 1950 Visit/Account:[id number] Date of Sevice: 07/07/2018 CHEST W CONTRAST COMPARISON: 03/01/2018, 09/08/2017 HISTORY: Lung cancer. TECHNIQUE: Axial CT of the chest with intravenous contrast. Coronal and sagittal reformats. One of the following dose optimization techniques was utilized in the performance of this exam: auto mated exposure control; adjustment of the mA and/or kV according to patient size; or use of iterative reconstruction technique. Specific details can be referenced in the facility's radiology CT exam op erational policy. CONTRAST: 75 mL of IV Isovue-370. CT CHEST FINDINGS: CARDIAC: Mild left coronary artery calcifications. MEDIASTINUM/PEREZ: No mediastinal or hilar lymph node enlargement. VASCULATURE: Moderate atherosclerotic calcifications, great vessel origins and descending thoracic a erasmo with associated narrowing in the proximal left subclavian artery and left common carotid artery origins. There is about 50% narrowing at the left common carotid artery origin and there is about 30% narrowing at the left subclavian artery. CHEST WALL: A 1.2 cm low-density nodule in the right thyroid lobe, within the superior mediastinum i s stable. Right chest wall port with tip in the distal SVC. No axillary adenopathy or chest wall mass . LUNGS/PLEURA: Mild upper lobe predominant centrilobular emphysema with stable spiculated morphology scarring in the right lung apex. No new pulmonary nodules or pleural effusion. There is mild diffuse bronchial wall thickening which is stable. BONES: Moderate thoracic spine, lower cervical spine degenerative changes. No acute fractures or con cerning bone lesions. There is a subacute healing nondisplaced left lateral seventh rib fracture, new from January, with callus present. LIMITED ABDOMEN: Low-density nodular adrenal thickening which have density measurements of adenoma o n previous noncontrast CT, visually stable. There is an apparent cystic lesion along the anterior mar gin of the pancreatic tail on series 2 image 97 measuring 4 x 8 mm which is stable dating back to at least 09/08/2017. OTHER: Negative. IMPRESSION: 1. Mild centrilobular emphysema with stable right apical scarring. No evidence of recurrent or metas tatic disease in the chest. 2. Bilateral adrenal adenomas which are stable. 3. Subcentimeter cystic lesion in the pancreatic tail is stable dating back to at least September. 4. Atherosclerotic great vessel disease, with about 50% left common carotid origin narrowing and 30% proximal left subclavian artery narrowing. Report Dictated By: Chuy Gloria at 07/07/2018 1:06 PM Report E-Signed By: Chuy Gloria at 07/07/2018 1:22 PM [id number]
[~2018-07-09 10:19] MED LIST changes: +ALTEPLASE RECOMB 2 MG VIAL IVP PRN; +DEXTROSE 5%(*) 100 ML BAG 100 ML IVPB PRN; +GADOBENATE 529MG/1ML 15ML VIAL IVP ONE; +HEPARIN FLSH (PORT) 500 UN/5ML IVP PRN; +IOPAMIDOL 76% 75 ML INFUS BTL 75 ML ONE; +NS(*) 0.9% 100 ML BAG 100 ML IVPB PRN; +NS(*) 0.9% 500 ML BAG 500 ML IV PRN; +WATER FOR INJ,STERILE 20 ML IVP PRN
[2018-07-09 10:37] VITALS: BP 141/76
--- NOTE | 2018-07-09 17:17 | ONCOLOGY FOLLOW UP NOTE ---
EVENT DATE: July 09, 2018 DIAGNOSIS Limited stage small cell lung cancer CHIEF COMPLAINT The patient is here today for followup of her small cell lung cancer. ONCOLOGY HISTORY Ms. Owusu is a 68-year-old female referred by Dr. Mike Call for evaluation and treatment of squamous cell lung cancer. The patient noted a left supraclavicular mass about four weeks ago. She presented to her physician, and a CAT scan was performed. Unfortunately a very large 7 cm left upper lobe mass was noted with invasion into the pleural and 6 cm hilar mass as well. Additionally supraclavicular mass was appreciated. The patient underwent a CT scan guided biopsy demonstrating small cell lung cancer. The patient started chemotherapy with cisplatin and etoposide on February 27, 2014. The patient completed her radiation on May 15, 2014. Patient completed 8 courses of cisplatin and etoposide on August 17, 2014. The patient completed prophylactic cranial irradiation in September 2014. The patient developed brain metastasis and she received radiation therapy to her brain metastasis, completed on December 13, 2015. HISTORY OF PRESENT ILLNESS Patient is here today for followup of her small cell lung cancer. She is complaining of runny nose, cough with expectoration. She continues to smoke. She has also occasional diarrhea related to food. She has tingling and numbness in her hands and feet. She bruises easily. She is weak, tired and fatigued. PAST MEDICAL HISTORY 1. Shingles. 2. Bronchitis. PAST SURGICAL HISTORY 1. Appendectomy. 2. Eye surgery. 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 She drinks one to two drinks per month. She smokes a pack per day for 35 years and is trying to quit. She does not chew or utilize recreational drugs. FAMILY HISTORY Mother with bilateral breast cancer. MEDICATIONS 1. Gabapentin 300 mg three times daily. 2. Levothyroxine 75 mcg daily. 3. Namenda 5 mg daily. 4. Ativan 1 mg p.r.n. q.4-6h. for anxiety or nausea or vomiting. 5. Zofran 8 mg q.12h. p.r.n. for nausea and vomiting. ALLERGIES NONE. REVIEW OF SYSTEMS CONSTITUTIONAL: No appetite or weight change. No fever, chills or sweating. No recent infection. HEENT: Ears: No tinnitus or hearing problem. Nose: She has runny nose. Throat: No sore throat or mouth ulcers. Eyes: No diplopia or visual changes. RESPIRATORY: No shortness of breath. She has cough with expectoration and the patient continues to smoke. No hemoptysis. CARDIOVASCULAR: No chest pain, orthopnea, or paroxysmal nocturnal dyspnea (PND). No edema. No palpitations. GASTROINTESTINAL: No nausea or vomiting. She has occasional diarrhea related to food. No constipation. No heartburn or swallowing difficulties. No abdominal pain. No jaundice. No hematemesis, melena or rectal bleeding. GENITOURINARY: No hematuria or dysuria. MUSCULOSKELETAL: No pain in the muscles, joints or bones. NEUROLOGICAL: She has tingling and numbness in the hands and feet, and she has imbalance.. No headaches or convulsions. HEMATOLOGIC/LYMPHATIC: No bleeding. She bruises easily. She is weak, tired and fatigued. No enlarged lymph nodes. SKIN: No skin rash or lumps. PSYCHIATRIC: No anxiety or depression. PHYSICAL EXAMINATION GENERAL: Looks stable. Well-developed, well-nourished, and in no acute distress. VITAL SIGNS: Blood pressure 141/76, pulse 63 per minute, respirations 16 per minute, temperature 98.9, pulse ox 90% on room air. HEENT: Head: Atraumatic. No sinus tenderness to palpation. Eyes: No icterus or conjunctivitis. Mouth and throat: No oral thrush or mucositis. NECK: Supple. No cervical or supraclavicular lymphadenopathy. LUNGS: Clear to auscultation and percussion bilaterally. HEART: Regular rate and rhythm. No gallops, murmurs, clicks or rubs. ABDOMEN: Soft and lax. No tenderness. No hepatosplenomegaly. No masses. EXTREMITIES: No cyanosis, clubbing or edema. LYMPHATICS: No peripheral lymphadenopathy. NEUROLOGICAL: Conscious, alert and oriented times three. No focal motor or sensory deficits. PSYCHIATRIC: Mood and affect appear normal. SKIN: No skin rash, bruise or purpuric eruption. DIAGNOSTIC DATA CBC showed white count 4.9, hemoglobin 13.7, hematocrit 39.4, platelets 131,000. Chem panel totally normal, except creatinine 1.2. CT chest done on July 07, 2018 showed no evidence of recurrent or metastatic disease. There was a subcentimeter cystic lesion in the pancreas which is also stable. MRI of the brain done on July 02, 2018 did not show any evidence of recurrent or residual disease, but there were changes due to previous radiation therapy. ASSESSMENT 1. Right cavitary mass of the right upper lobe diagnosed by PET scan on February 14, 2015. The size was 4.2 cm with SUV of 6.4. CT-guided biopsies on March 16, 2015 and April 02, 2015 came back positive for malignancy. Repeat CT scans March 10, 2016, November 24, 2016 showed that that mass was stable in size without any changes. It looks like there is some scarring there. CT scan December 07, 2017 was also stable, and her current scan done on July 07, 2018 showed also stable scan. I am planning to continue followup. I will see the patient again in three months with CBC, chem panel and chest x-ray PA and lateral view. Patient continues to smoke and she was advised to quit smoking. 2. Extensive stage small cell lung cancer with brain metastasis. Patient received six cycles of cisplatin and LOCATOR-16 between February 27, 2014 through August 17, 2014. She received radiation therapy of the lung masses, completed May 15, 2014, and repeat PET scan July 10, 2015 did reveal residual mass decreased in size from 8.8 to 6 cm with residual SUV of 3. Patient received two more cycles of chemotherapy with cisplatin and LOCATOR-16 completed August 17, 2014, and the nodule shrank from 4 cm to 3.4 cm, with SUV drop from 3 to 2.2. PET scan on February 14, 2015 showed that the SUV increased from 2.2 to 2.9. There was a new cavitary mass in the right upper lobe of the lung which was biopsied and the biopsy came back negative for malignancy as mentioned above. Her current CT chest did not show any changes. I am planning to get a chest x-ray with her next visit in three months. 3. Brain metastasis of the left cerebellum, status post radiation therapy. Her MRI July 02, 2018 showed treated left cerebellar metastasis without residual enhancement. We will continue to monitor. 4. Chemotherapy-induced neuropathy, stable. We will continue gabapentin. PLAN 1. Continue followup. 2. Patient to return in three months with CBC, chem panel, chest x-ray PA and lateral view. 3. Patient is to contact us for any new concerns or complaints. [facility]
== END 2018-09-29 ==
LOC: ONC 10:19
PROVIDERS: ATTEND Internal Medicine Hematology
DX: C34.11 Malignant neoplasm of upper lobe, right bronchus or lung (principal); C79.31 Secondary malignant neoplasm of brain; J43.2 Centrilobular emphysema; G62.0 Drug-induced polyneuropathy; T45.1X5A Adverse effect of antineoplastic and immunosuppressive drugs, initial encounter; Z79.899 Other long term (current) drug therapy; R05 Cough; F17.210 Nicotine dependence, cigarettes, uncomplicated
CPT/HCPCS: 36591; 70553; 71260; 82565; 85025; 96374; A9577; G0463; J1642; J2997; Q9967; 82040; 82247; 82310; 82374; 82435; 82947; 84075; 84132; 84155; 84295; 84450; 84460; 84520; 99212

== ENCOUNTER 2018-07-20 07:41 | Outpatient (RCR) | payer MEDICARE, OTHER ==
[2018-03-01 09:20] VITALS: BP 137/70
[~2018-07-20 07:41] MED LIST changes: -ALTEPLASE RECOMB 2 MG VIAL IVP PRN; -DEXTROSE 5%(*) 100 ML BAG 100 ML IVPB PRN; -GADOBENATE 529MG/1ML 15ML VIAL IVP ONE; -HEPARIN FLSH (PORT) 500 UN/5ML IVP PRN; -IOPAMIDOL 76% 75 ML INFUS BTL 75 ML ONE; -NS(*) 0.9% 100 ML BAG 100 ML IVPB PRN; -NS(*) 0.9% 500 ML BAG 500 ML IV PRN; -WATER FOR INJ,STERILE 20 ML IVP PRN
== END 2018-08-30 14:21 | disposition home or self-care (01) ==
LOC: RAON 07:41
PROVIDERS: ATTEND Radiology Radiation Oncology
DX: C34.90 Malignant neoplasm of unspecified part of unspecified bronchus or lung (principal); C79.31 Secondary malignant neoplasm of brain
CPT/HCPCS: 99212

== ENCOUNTER 2018-09-22 14:30 | Outpatient (RCR) | payer MEDICARE, OTHER ==
--- NOTE | 2018-07-19 15:12 | PT INITIAL EVALUATION ---
MEDICAL DIAGNOSIS: Decreased Balance, Abnormality of Gait, Frequent Falls, Generalized Weakness TREATMENT DIAGNOSIS: Decreased Balance, Abnormality of Gait, Frequent Falls, Generalized Weakness DATE OF ONSET: 07/19/18 SUBJECTIVE: Mavis is a 68 year old female presenting to physical therapy following decline in condition resulting in recent falls. Pt reports that she fell twice last week and once the week before. Pt was a prior participant in physical therapy and reports that she hasn't done any exercises since she was last discharged. She reports that she is to fearful to walk outside alone and that she mostly stay sitting throughout the day avoiding doing anything that might make her loose her balance. Pt reports that she feels wobbly when she walks, but reports no dizziness. Pt denies any injuries following her falls last week on and Thursday, but occasionally has a sore tailbone and a couple bruises that hurt with activity only. Pt is a long time smoker and continues to smoke. REHAB PROBLEM LIST: Decreased Strength Impaired Transfers Decreased Endurance Decreased Balance Decreased Function Decreased ADL's Decreased Mobility Decreased Gait PREVIOUS MEDICAL HISTORY: See EMR OCCUPATION: Retired OBJECTIVE: Pt presents with SPC with occasional use with walking and transfers inconsistently. Posture: Pt has significant forward trunk lean that increases with ambulation or activity. Strength: LE MMT: Hip: flex: L 4-/5, R 3+/5, ext: B 4-/5, add/abd: B 4/5. Knee: ext: B 4-/5, flex: L 4-/5, R 4/5. Ankle: DF: B 4/5, PF: B 4/5 Mobility: Pt requires use of 1 UE on chair and 1 UE on cane for transfers from seated<>standing. Gait: Functional Gait Assessment (FGA): 05/01. Gait significant for forward trunk lean, shuffled shortened steps with lateral deviations with LOB, lateral hip rotation B, & decreased foot clearance. Balance: 4 Stage Balance: Tandem: L 6 sec, R 4 sec, SLS L 2 sec, R unable to obtain position Other Objective Findings: ASSESSMENT: Mavis shows signs and symptoms consistent with generalized weakness, abnormality of gait, and instability as outlined by the above listed deficits. Physical therapy is indicated to decrease pt fall risk as well as improve functional mobility with ADL's. Short Term Goals In 3 weeks pt will improve FGA Score to 8/30 for improved function with ADL's and ambulation. In 3 weeks pt will improve tandem balance to 15 seconds B for improved balance with narrow SERGIO for ADL's. In 6 weeks pt will increase strength to 4/5 in all LE muscle groups for improved function and stability with ADL's. In 6 weeks pt will improve FGA Score to 10/300 for improved function with ADL's and ambulation. Patient's Goals Improve balance and decrease fall risk. PLAN: Patient to be seen for Manual Therapy/STM/MET Strengthening/condition Ice/Heat Range of Motion Spinal Stabilization Stretching Neuromuscular Re-ed Closed Chain Program Electrical Stim Posture/Body mechanics Gait Trg/Balance Trg Home Exercise Program Mech./Manual Traction Therapeutic Activities Pelvic Floor 3x/Week for 6 Weeks If you have any questions, comments, or concerns about this report or plan, please contact me at . Thank you, Dorinda Klein, PT, DPT, CLT MTDD
--- NOTE | 2018-08-11 08:30 | PT PLAN OF CARE ---
Physician: Amy Espinal MD Patient is being seen: 2x/Week Therapist: Dorinda Klein, PT, DPT, CLT Medical Diagnosis: Decreased Balance, Abnormality of Gait, Frequent Falls, Generalized Weakness Treatment Diagnosis: Decreased Balance, Abnormality of Gait, Frequent Falls, Generalized Weakness Date of Onset: 07/19/18 Date of Initial Evaluation: 07/19/18 Date patient was last seen: 08/09/18 Number of treatments: 10 Number of cancellations/No shows: 0 INTERVENTIONS: Manual Therapy/STM/MET Strengthening/condition Ice/Heat Range of Motion Spinal Stabilization Stretching Neuromuscular Re-ed Closed Chain Program Electrical Stim Posture/Body mechanics Gait Trg/Balance Trg Home Exercise Program Mech./Manual Traction Therapeutic Activities Pelvic Floor GOALS: In 3 weeks pt will improve FGA Score to 8/30 for improved function with ADL's and ambulation. MET In 3 weeks pt will improve tandem balance to 15 seconds B for improved balance with narrow SERGIO for ADL's. In 6 weeks pt will increase strength to 4/5 in all LE muscle groups for improved function and stability with ADL's. In 6 weeks pt will improve FGA Score to 10/30 for improved function with ADL's and ambulation. MET PATIENT'S GOAL: Improve balance and decrease fall risk. Status of Patient's Goals: In Progress Patient Compliance: Fair Prognosis: Fair Reasons for continuing therapy: Mavis shows improved progression with stability of gait as well as with endurance. Additionally pt shows improved ability to perform transfers from seated<>standing without use of UE support. However, pt shows little gains at this point in gross strength of the LE as well as with static stability. Further PT is indicated for this patient to maintain gains in ambulation stability as well as to improve these lingering deficits. Posture: Pt has significant forward trunk lean that increases with ambulation or activity. Strength: LE MMT: Hip: flex: L 4-/5, R 3+/5, ext: B 4-/5, add/abd: B 4/5. Knee: ext: B 4-/5, flex: L 4-/5, R 4/5. Ankle: DF: B 4/5, PF: B 4/5 Special Tests: Functional Gait Assessment: Mobility: Pt is able to perform transfers seated<>standing without use of B UE. Balance: 4 Stage Balance: Tandem: L 6 sec, R 4 sec, SLS L 2 sec, R unable to obtain position If you have any questions or concerns, please feel free to contact me at [phone]. Thank you, Dorinda Klein, PT, DPT, CLT MTDD
--- NOTE | 2018-09-09 08:42 | PT PLAN OF CARE ---
Physician: Amy Espinal MD Patient is being seen: 3x/Week Therapist: Dorinda Klein, PT, DPT, CLT Medical Diagnosis: Decreased Balance, Abnormality of Gait, Frequent Falls, Generalized Weakness Treatment Diagnosis: Decreased Balance, Abnormality of Gait, Frequent Falls, Generalized Weakness Date of Onset: 07/19/18 Date of Initial Evaluation: 07/19/18 Date patient was last seen: 09/08/18 Number of treatments: 21 Number of cancellations/No shows: 2 INTERVENTIONS: Manual Therapy/STM/MET Strengthening/condition Ice/Heat Range of Motion Spinal Stabilization Stretching Neuromuscular Re-ed Closed Chain Program Electrical Stim Posture/Body mechanics Gait Trg/Balance Trg Home Exercise Program Mech./Manual Traction Therapeutic Activities Pelvic Floor GOALS: In 3 weeks pt will improve FGA Score to 8/30 for improved function with ADL's and ambulation. MET In 3 weeks pt will improve tandem balance to 15 seconds B for improved balance with narrow SERGIO for ADL's. In 6 weeks pt will increase strength to 4/5 in all LE muscle groups for improved function and stability with ADL's. In 6 weeks pt will improve FGA Score to 10/30 for improved function with ADL's and ambulation. MET PATIENT'S GOAL: Improve balance and decrease fall risk. Status of Patient's Goals: In Progress Patient Compliance: Fair Prognosis: Fair Reasons for continuing therapy: Mavis shows significant improvements in strength of the LE with associated improvements with transfers and bed mobility. Gait mechanics remain with little improvement. However, focus and intention of gait training has shifted towards increased stability with SPC secondary to poor progression with balance and poor patient compliance with HEP. Further PT to continue with improving gait stability and function with improved posture. Posture: Pt has significant forward trunk lean that increases with ambulation or activity. Strength: LE MMT: Hip: flex: L 4/5, R 4+/5, ext: B 5/5, add/abd: B 5/5. Knee: ext: B 5/5, flex: L 5/5, R 4/5. Ankle: DF: B 5/5, PF: B 5/5 Special Tests: Functional Gait Assessment: Mobility: Pt is able to perform transfers seated<>standing without use of B UE. Balance: 4 Stage Balance: Tandem: L 10 sec, R 4 sec, SLS L 2 sec, R unable to obtain position If you have any questions or concerns, please feel free to contact me at [phone]. Thank you, Dorinda Klein, PT, DPT, CLT MTDD
== END 2018-10-17 ==
LOC: PT 14:30
PROVIDERS: ATTEND Internal Medicine Hematology
DX: R26.89 Other abnormalities of gait and mobility (principal); R53.1 Weakness; R29.6 Repeated falls; Z72.0 Tobacco use
CPT/HCPCS: 97161

== ENCOUNTER 2018-12-30 09:52 | Outpatient (RCR) | payer MEDICARE, OTHER ==
[2018-10-06 09:48] VITALS: BP 84/55
[2018-10-06] MEDS: LIDOCAINE/SOD BICARB 8.4% SYR ID PRN (10:27)
[2018-10-06] MEDS: HEPARIN FLSH (PORT) 500 UN/5ML IVP PRN (10:28)
[2018-10-06 10:29] LABS: PLATELET COUNT, AUTOMATED 128 K/uL (150-450)
--- NOTE | 2018-10-06 12:07 | RADIOLOGY IMAGING REPORT ---
FACILITY: [facility] - [place] PATIENT NAME: Mavis Owusu : 1950 MR: [id number] V: [id number] EXAM DATE: ORDERING PHYSICIAN: EN MOSS TECHNOLOGIST: Location: [facility] [place] Patient: Mavis Owusu : 1950 Visit/Account:[id number] Date of Sevice: 10/06/2018 Exam type: CHEST PA AND LAT History: SMALL CELL LUNG CANCER Comparison: April 07, 2018. Findings: The pleural parenchymal opacity in the right pulmonary apex appears stable. There is hyperinflation of the lung villalba. No evidence of new areas of pulmonary consolidation pleural effusions or pulmona ry edema. Cardiac silhouette is normal in size. There Is a implanted right IJ port distal tip proje cts over the superior vena cava IMPRESSION: 1. The pleural parenchymal opacity of the right pulmonary apex appears stable apparently related to patient's treated lung cancer Report Dictated By: Gloria Squires MD at 10/06/2018 11:59 AM Report E-Signed By: Gloria Squires MD at 10/06/2018 12:01 PM WSN:[id number]
[2018-10-08 09:53] VITALS: BP 146/77
--- NOTE | 2018-10-09 10:27 | [facility] ONCOLOGY NOTE ---
EVENT DATE: October 08, 2018 DIAGNOSIS Limited stage small cell lung cancer CHIEF COMPLAINT The patient is here today for followup of her small cell lung cancer. ONCOLOGY HISTORY Ms. Owusu is a 68-year-old female referred by Dr. Mike Call for evaluation and treatment of squamous cell lung cancer. The patient noted a left supraclavicular mass about four weeks ago. She presented to her physician, and a CAT scan was performed. Unfortunately a very large 7 cm left upper lobe mass was noted with invasion into the pleural and 6 cm hilar mass as well. Additionally supraclavicular mass was appreciated. The patient underwent a CT scan guided biopsy demonstrating small cell lung cancer. The patient started chemotherapy with cisplatin and etoposide on February 27, 2014. The patient completed her radiation on May 15, 2014. Patient completed 8 courses of cisplatin and etoposide on August 17, 2014. The patient completed prophylactic cranial irradiation in September 2014. The patient developed brain metastasis and she received radiation therapy to her brain metastasis, completed on December 13, 2015. HISTORY OF PRESENT ILLNESS Patient is here today for followup of her small cell lung cancer. She is complaining of cough with expectoration. She has alternating diarrhea and constipation. She has occasional pain in her hips. She has neuropathy in her hands and feet. She is weak, tired and fatigued. PAST MEDICAL HISTORY 1. Shingles. 2. Bronchitis. PAST SURGICAL HISTORY 1. Appendectomy. 2. Eye surgery. 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 She drinks one to two drinks per month. She smokes a pack per day for 35 years and is trying to quit. She does not chew or utilize recreational drugs. FAMILY HISTORY Mother with bilateral breast cancer. MEDICATIONS 1. Gabapentin 300 mg three times daily. 2. Levothyroxine 75 mcg daily. 3. Namenda 5 mg daily. 4. Ativan 1 mg p.r.n. q.4-6h. for anxiety or nausea or vomiting. 5. Zofran 8 mg q.12h. p.r.n. for nausea and vomiting. ALLERGIES NONE. REVIEW OF SYSTEMS CONSTITUTIONAL: No appetite or weight change. No fever, chills or sweating. No recent infection. HEENT: Ears: No tinnitus or hearing problem. Nose: She has runny nose. Throat: No sore throat or mouth ulcers. Eyes: No diplopia or visual changes. RESPIRATORY: She has cough with expectoration. CARDIOVASCULAR: No chest pain, orthopnea, or paroxysmal nocturnal dyspnea (PND). No edema. No palpitations. GASTROINTESTINAL: She has alternating diarrhea and constipation. GENITOURINARY: No hematuria or dysuria. MUSCULOSKELETAL: She has occasional pain in the hips. NEUROLOGICAL: She has neuropathy in her hands and feet. HEMATOLOGIC/LYMPHATIC: She is weak, tired and fatigued. SKIN: No skin rash or lumps. PSYCHIATRIC: No anxiety or depression. PHYSICAL EXAMINATION GENERAL: Looks stable. Well-developed, well-nourished, and in no acute distress. VITAL SIGNS: Blood pressure 146/77, pulse 74 per minute, respirations 16 per minute, temperature 98.5, pulse ox 90% on room air. HEENT: Head: Atraumatic. No sinus tenderness to palpation. Eyes: No icterus or conjunctivitis. Mouth and throat: No oral thrush or mucositis. NECK: Supple. No cervical or supraclavicular lymphadenopathy. LUNGS: Clear to auscultation and percussion bilaterally. HEART: Regular rate and rhythm. No gallops, murmurs, clicks or rubs. ABDOMEN: Soft and lax. No tenderness. No hepatosplenomegaly. No masses. EXTREMITIES: No cyanosis, clubbing or edema. LYMPHATICS: No peripheral lymphadenopathy. NEUROLOGICAL: Conscious, alert and oriented times three. No focal motor or sensory deficits. PSYCHIATRIC: Mood and affect appear normal. SKIN: No skin rash, bruise or purpuric eruption. DIAGNOSTIC DATA CBC showed white count 5.3, hemoglobin 14, hematocrit 40.7, platelets 128,000. Chem panel totally normal except sodium 135. Creatinine 1.3. Alkaline phosphatase is 129. Chest x-ray on July 07, 2018 showed stable opacity of the right lung apex. ASSESSMENT 1. Right cavitary mass of the right upper lobe diagnosed by PET scan on February 14, 2015. The size was 4.2 cm with SUV of 6.4. CT-guided biopsies on March 16, 2015 and April 02, 2015 came back positive for malignancy. Repeat CT March 10, 2016 and November 24, 2016 showed that that mass was stable in size without any changes. It looks like there is some scarring there. CT on December 07, 2017 was also stable and CT scan on July 07, [address] scan. Her current chest x-ray on December 07, 2017 showed also stable opacity in the right lung apex. Patient currently is doing very well. I am planning to continue followup. I will see her again in three months with CBC, chem panel and CT chest with contrast at that time. 2. Extensive stage small cell lung cancer with brain metastasis. Patient received six cycles of cisplatin and E[employer] REG[employer]RAR-16 between February 27, 2014 through August 17, 2014. She received radiation therapy of the lung masses, completed May 15, 2014, and repeat PET scan July 10, 2015 did reveal residual mass decreased in size from 8.8 to 6 cm with residual SUV of 3. Patient received two more cycles of chemotherapy with cisplatin and ELE[employer] S[employer] REGISTRAR-16 completed August 17, 2014 and the nodule shrank from 4 cm to 3.4 cm with SUV drop from 3 to 2.2. PET scan on February 14, 2015 showed that the SUV increased from 2.2 to 2.9. There was a new cavitary mass in the right upper lobe of the lung which was biopsied and the biopsy came back negative for malignancy. Her current CT chest did not show any progression. There was some opacity in the right lung apex, which is stable. I am planning to see her again in three months with CBC, chem panel and CT chest with IV contrast. 3. Chemotherapy-induced neuropathy. Continue gabapentin. 4. Brain metastasis of the left cerebellum, status post radiation therapy. MRI on July 02, 2018 showed treated left cerebellar metastasis without residual enhancement. Continue to monitor. Patient is complaining of some imbalance, which could be due to her metastasis and the left cerebellum and radiation therapy effect. PLAN 1. Continue followup. 2. Patient to return in three months with CBC, chem panel, chest x-ray with contrast and free T4, free T3 and TSH. 3. Patient is to contact us for any new concerns or complaints. 4. Flu vaccine to be given today. MTDD
[2018-11-25] MEDS: LIDOCAINE/SOD BICARB 8.4% SYR ID PRN (13:11)
[2018-11-25] MEDS: HEPARIN FLSH (PORT) 500 UN/5ML IVP PRN (13:13)
[2018-11-25 13:14] VITALS: BP 100/70
[2018-12-29 11:05] LABS: PLATELET COUNT, AUTOMATED 130 K/uL (150-450)
[2018-12-29 11:47] VITALS: BP 101/60
[2018-12-29] MEDS: HEPARIN FLSH (PORT) 500 UN/5ML IVP PRN (11:49)
[2018-12-29] MEDS: LIDOCAINE/SOD BICARB 8.4% SYR ID PRN (11:50)
[~2018-12-30 09:52] MED LIST changes: +ALTEPLASE RECOMB 2 MG VIAL IVP PRN; +DEXTROSE 5%(*) 100 ML BAG 100 ML IVPB PRN; +INFLUENZA VIRUS VAC 0.5ML SYR IM ONLY ONE; +NS(*) 0.9% 100 ML BAG 100 ML IVPB PRN; +NS(*) 0.9% 500 ML BAG 500 ML IV PRN; +WATER FOR INJ,STERILE 20 ML IVP PRN
[2018-12-30] MEDS: LIDOCAINE/SOD BICARB 8.4% SYR ID PRN (10:11)
[2018-12-30] MEDS: HEPARIN FLSH (PORT) 500 UN/5ML IVP PRN (10:11)
--- NOTE | 2018-12-30 16:43 | RADIOLOGY IMAGING REPORT ---
[place] [facility] [place] NAME[place] Mavis Owusu : 1950 MR: [id number] V: [id number] EXAM DATE: ORDERING PHYSICIAN: EN MOSS TECHNOLOGIST: Location: [facility] - [place] Patient: Mavis Owusu : 1950 Visit/Account:[id number] Date of Sevice: 12/30/2018 CT CHEST (CONTRAST) History: Small cell lung cancer, cough x1 week TECHNIQUE: Contiguous axial images were performed through the chest to the level of the adrenal gla nds following the administration of IV contrast. Coronal and sagittal reformatting was also perform ed.Dose Lowering Technique One of the following dose optimization techniques was utilized in the performance of this exam: Autom ated exposure control; adjustment of the mA and/or kV according to the patient's size; or use of an i terative reconstruction technique. Specific details can be referenced in the facility's radiology C T exam operational policy. Contrast: 75 mL Isovue-370 COMPARISON STUDIES: July 07, 2018. Lungs / Pleura: Fibrotic scarring in the right pulmonary apex appears unchanged. There is diffuse centrilobular emphysema throughout the lungs is no evidence of new pulmonary nodules or pleural effus ions. Mild diffuse peribronchial thickening appears stable. There is mild linear scarring in the in ferior right middle lobe and in the lower lobes. There are minimal secretions in the left main bronc hus Mediastinum/nodes: negative. Heart and vessels: Moderate atherosclerotic calcifications are again seen throughout the thoracic ao rta and branch vessels including the coronary arteries. The previously noted 50% narrowing at the or igin of the left common carotid artery and 30% narrowing at the origin of the left subclavian artery are relatively unchanged. Approximate 20% narrowing at the origin of the right subclavian artery vanessa t also appears unchanged This a implanted right IJ port the distal tip in superior vena cava Musculoskeletal / Body wall: 1.2 cm low dense nodule inferior right lobe thyroid gland is again not ed. There is a gentle dextroconvex scoliosis of the thoracic spine with multilevel spondylotic sosa es similar to the prior study. There are mild compressions of T12 and of 1110 nine T9 that appear un changed. There is an old lateral left seventh rib fracture Upper abdomen: Bilateral nodular thickening the adrenal glands appears relatively unchanged. The 8 mm hypoattenuating mass anterior aspect tail of the pancreas appears stable IMPRESSION: Fibrotic scarring in the right pulmonary apex appears unchanged Diffuse centrilobular emphysema again noted throughout the lungs and mild diffuse chronic peribronchi al thickening There are minimal secretions in the left main bronchus Atherosclerotic calcifications of the chest as described appear stable 1.2 cm right thyroid nodule appears stable Bilateral nodular thickening the adrenal glands appears relatively unchanged. 8 mm hypoattenuating mass anterior aspect of the pancreas appears stable Report Dictated By: Gloria Squires MD at 12/30/2018 4:11 PM Report E-Signed By: Gloria Squires MD at 12/30/2018 4:40 PM WSN:[email or web address]
== END 2019-01-04 ==
LOC: SPU 09:52
PROVIDERS: ATTEND Internal Medicine Hematology
DX: C34.11 Malignant neoplasm of upper lobe, right bronchus or lung (principal); C79.31 Secondary malignant neoplasm of brain; J43.2 Centrilobular emphysema; G62.0 Drug-induced polyneuropathy; T45.1X5A Adverse effect of antineoplastic and immunosuppressive drugs, initial encounter; Z79.899 Other long term (current) drug therapy; R05 Cough; F17.210 Nicotine dependence, cigarettes, uncomplicated; Z23 Encounter for immunization; Z92.3 Personal history of irradiation; Z92.21 Personal history of antineoplastic chemotherapy
CPT/HCPCS: 36591; 71046; 71260; 84439; 84443; 84481; 85025; 96523; G0008; G0463; J1642; Q2037; Q9967; 82040; 82247; 82310; 82374; 82435; 82565; 82947; 84075; 84132; 84155; 84295; 84450; 84460; 84520; 90674; 99212

== ENCOUNTER → 2019-03-24 | Outpatient (CLI) | payer MEDICARE, OTHER ==
[~2019-03-24] MED LIST changes: -ALTEPLASE RECOMB 2 MG VIAL IVP PRN; -DEXTROSE 5%(*) 100 ML BAG 100 ML IVPB PRN; -INFLUENZA VIRUS VAC 0.5ML SYR IM ONLY ONE; -NS(*) 0.9% 100 ML BAG 100 ML IVPB PRN; -NS(*) 0.9% 500 ML BAG 500 ML IV PRN; -WATER FOR INJ,STERILE 20 ML IVP PRN
--- NOTE | 2019-03-24 14:05 | RADIOLOGY IMAGING REPORT ---
FACILITY: [facility] - [place] PATIENT NAME: Mavis Owusu : 1950 MR: [id number] V: [id number] EXAM DATE: ORDERING PHYSICIAN: EN MOSS TECHNOLOGIST: Location: [facility] Patient: Mavis Owusu : 1950 Visit/Account:[id number] Date of Sevice: 03/24/2019 Exam type: CHEST PA LAT History: Follow-up history of lung cancer Comparison: October 06, 2018. Findings: The pleural parenchymal opacity of the right upper thorax appears relatively unchanged apparently rel ated to patient's treated lung cancer. No new areas of pulmonary consolidation are identified. The cardiac silhouette is normal in size. The trachea is in midline. There is an implanted right IJ por t with the distal tip over the superior vena cava IMPRESSION: 1. No acute cardiopulmonary process Report Dictated By: Gloria Squires MD at 03/24/2019 1:59 PM Report E-Signed By: Gloria Squires MD at 03/24/2019 2:00 PM WSN:[email or web address]
== END ==
LOC: RAD 11:40
PROVIDERS: ATTEND Internal Medicine Hematology
DX: C34.10 Malignant neoplasm of upper lobe, unspecified bronchus or lung (principal)
CPT/HCPCS: 71046

== ENCOUNTER → 2019-04-07 | Outpatient (RCR) | payer MEDICARE, OTHER ==
[2019-01-07 09:57] VITALS: BP 128/70
--- NOTE | 2019-01-07 10:46 | EL-TARABILY ONCOLOGY NOTE ---
EVENT DATE: January 07, 2019 DIAGNOSIS Limited stage small cell lung cancer CHIEF COMPLAINT The patient is here today for followup of her small cell lung cancer. ONCOLOGY HISTORY Ms. Owusu is a 68-year-old female referred by Dr. Mike Call for evaluation and treatment of squamous cell lung cancer. The patient noted a left supraclavicular mass about four weeks ago. She presented to her physician, and a CAT scan was performed. Unfortunately a very large 7 cm left upper lobe mass was noted with invasion into the pleural and 6 cm hilar mass as well. Additionally supraclavicular mass was appreciated. The patient underwent a CT scan guided biopsy demonstrating small cell lung cancer. The patient started chemotherapy with cisplatin and etoposide on February 27, 2014. The patient completed her radiation on May 15, 2014. Patient completed 8 courses of cisplatin and etoposide on August 17, 2014. The patient completed prophylactic cranial irradiation in September 2014. The patient developed brain metastasis and she received radiation therapy to her brain metastasis, completed on December 13, 2015. HISTORY OF PRESENT ILLNESS Patient is here today for followup of her small cell lung cancer. She is complaining of cough with expectoration and occasional wheezing. She has also alternating diarrhea and constipation based on her food. She has also tingling and numbness in the hands and feet. She does not have any stamina and she is complaining of falling and imbalance. PAST MEDICAL HISTORY 1. Shingles. 2. Bronchitis. PAST SURGICAL HISTORY 1. Appendectomy. 2. Eye surgery. 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 She drinks one to two drinks per month. She smokes a pack per day for 35 years and is trying to quit. She does not chew or utilize recreational drugs. FAMILY HISTORY Mother with bilateral breast cancer. MEDICATIONS 1. Gabapentin 300 mg three times daily. 2. Levothyroxine 75 mcg daily. 3. Namenda 5 mg daily. 4. Ativan 1 mg p.r.n. q.4-6h. for anxiety or nausea or vomiting. 5. Zofran 8 mg q.12h. p.r.n. for nausea and vomiting. ALLERGIES NONE. REVIEW OF SYSTEMS CONSTITUTIONAL: No appetite or weight change. No fever, chills or sweating. No recent infection. HEENT: Ears: No tinnitus or hearing problem. Nose: She has runny nose. Throat: No sore throat or mouth ulcers. Eyes: No diplopia or visual changes. RESPIRATORY: She has cough with phlegm and occasional wheezing. CARDIOVASCULAR: No chest pain, orthopnea, or paroxysmal nocturnal dyspnea (PND). No edema. No palpitations. GASTROINTESTINAL: She has alternating diarrhea and constipation based on her food items. GENITOURINARY: No hematuria or dysuria. MUSCULOSKELETAL: She has occasional pain in the hips. NEUROLOGICAL: She has tingling and numbness in the hands and feet. HEMATOLOGIC/LYMPHATIC: She is tired and does not have stamina. SKIN: No skin rash or lumps. PSYCHIATRIC: No anxiety or depression. PHYSICAL EXAMINATION GENERAL: Looks stable. Well-developed, well-nourished, and in no acute distress. VITAL SIGNS: Blood pressure 128/70, pulse 61 per minute, respirations 16 per minute, temperature 98.7, pulse ox 91% on room air. HEENT: Head: Atraumatic. No sinus tenderness to palpation. Eyes: No icterus or conjunctivitis. Mouth and throat: No oral thrush or mucositis. NECK: Supple. No cervical or supraclavicular lymphadenopathy. LUNGS: Clear to auscultation and percussion bilaterally. HEART: Regular rate and rhythm. No gallops, murmurs, clicks or rubs. ABDOMEN: Soft and lax. No tenderness. No hepatosplenomegaly. No masses. EXTREMITIES: No cyanosis, clubbing or edema. LYMPHATICS: No peripheral lymphadenopathy. NEUROLOGICAL: Conscious, alert and oriented times three. No focal motor or sensory deficits. PSYCHIATRIC: Mood and affect appear normal. SKIN: No skin rash, bruise or purpuric eruption. DIAGNOSTIC DATA CBC showed white count 4.8, hemoglobin 13.5, hematocrit 40.1, platelets 130,000. TSH is 4.7, free T3 is 1.8. Chem panel totally normal except alkaline phosphatase [address] chest done December 30, 2018 showed that the fibrosis in the right apex is stable. The 1.2 cm right thyroid nodule is also stable. There was also stable 8 mm hyperattenuation pancreatic mass. ASSESSMENT 1. Right cavitary mass of the right upper lobe diagnosed by PET scan on February 14, 2015. The size was 4.2 cm with SUV of 6.4. CT-guided biopsies on March 16, 2015 and April 02, 2015 came back positive for malignancy. Repeat CT March 10, 2016 and November 24, 2016 showed that that mass was stable in size without any changes. It looks as if this is actually scarring. CT scan on December 07, 2017 and July 07, 2018, and her current CT scan on December 30, 2018, all showed that this area in the right apex is stable, looks like fibrotic scar. She is currently doing very well except for imbalance from her previous radiation and falls from that. 2. Extensive stage small cell lung cancer with brain metastasis. Patient received six cycles of cisplatin and WOOD FORM BUILDER-16 between February 27, 2014 through August 17, 2014. She received radiation therapy of the lung masses, completed May 15, 2014, and repeat PET scan July 10, 2015, did reveal residual mass decreased in size from 8.8 to 6 cm with residual SUV of 3. Patient received two more cycles of chemotherapy with cisplatin and WOOD FORM BUILDER-16 completed August 17, 2014 and the nodule shrank from 4 cm to 3.4 cm with SUV drop from 3 to 2.2. PET scan on February 14, 2015 showed that the SUV increased from 2.2 to 2.9. There was a new cavitary mass in the right upper lobe of the lung which was biopsied and the biopsy came back negative for malignancy. Her current CT chest did not show any progression. I am planning to continue followup. I will see her in three months with CBC, chem panel and chest x-ray at that time. 3. Hypothyroidism, on Synthroid 50 mcg. Her TSH is 4.7. 4. Chemotherapy-induced neuropathy. Continue gabapentin. 5. Brain metastasis of the left cerebellum, status post radiation therapy. MRI on July 02, 2018 showed the left cerebellar metastasis is treated without residual enhancement. She is complaining of imbalance all the time and patient was advised to use a cane or a walker and to have physical therapy but she refused the idea of physical therapy. PLAN 1. Continue followup. 2. Patient to return in three months with CBC, chem panel, TSH and chest x-ray. 3. Patient is to contact us for any new concerns or complaints. [facility]
[2019-01-27] MEDS: HEPARIN FLSH (PORT) 500 UN/5ML IVP PRN (14:29)
[2019-01-27] MEDS: LIDOCAINE/SOD BICARB 8.4% SYR ID PRN (14:29)
[2019-01-27 14:30] VITALS: BP 94/59
[2019-03-01 12:15] VITALS: BP 118/66
[2019-03-01] MEDS: LIDOCAINE/SOD BICARB 8.4% SYR ID PRN (12:19)
[2019-03-01] MEDS: HEPARIN FLSH (PORT) 500 UN/5ML IVP PRN (12:19)
--- NOTE | 2019-03-01 12:32 | NUR ---
SW Technical Maintenance Specialist worked with pt to get handicap placard application signed by SIGNALLING AND COMMUNICATIONS ENGINEER. Request was for permanent placard. Daughter took signed copy to take to [employer].
[2019-03-24] MEDS: LIDOCAINE/SOD BICARB 8.4% SYR ID PRN (11:32)
[2019-03-24] MEDS: HEPARIN FLSH (PORT) 500 UN/5ML IVP PRN (11:33)
[2019-03-24 11:35] LABS: PLATELET COUNT, AUTOMATED 145 K/uL (150-450)
[~2019-04-07] MED LIST changes: +ALTEPLASE RECOMB 2 MG VIAL IVP PRN; +DEXTROSE 5%(*) 100 ML BAG 100 ML IVPB PRN; +NS(*) 0.9% 100 ML BAG 100 ML IVPB PRN; +NS(*) 0.9% 500 ML BAG 500 ML IV PRN; +WATER FOR INJ,STERILE 20 ML IVP PRN
[2019-04-07 11:25] VITALS: BP 143/74
--- NOTE | 2019-04-07 12:38 | EL-TARABILY ONCOLOGY NOTE ---
EVENT DATE: April 07, 2019 DIAGNOSIS Limited stage small cell lung cancer CHIEF COMPLAINT The patient is here today for followup of her small cell lung cancer. ONCOLOGY HISTORY Ms. Owusu is a 68-year-old female referred by Dr. Mike Call for evaluation and treatment of squamous cell lung cancer. The patient noted a left supraclavicular mass about four weeks ago. She presented to her physician, and a CAT scan was performed. Unfortunately a very large 7 cm left upper lobe mass was noted with invasion into the pleural and 6 cm hilar mass as well. Additionally supraclavicular mass was appreciated. The patient underwent a CT scan guided biopsy demonstrating small cell lung cancer. The patient started chemotherapy with cisplatin and etoposide on February 27, 2014. The patient completed her radiation on May 15, 2014. Patient completed 8 courses of cisplatin and etoposide on August 17, 2014. The patient completed prophylactic cranial irradiation in September 2014. The patient developed brain metastasis and she received radiation therapy to her brain metastasis, completed on December 13, 2015. HISTORY OF PRESENT ILLNESS Patient is here today for followup of her small cell lung cancer. She is complaining of some cough and wheezing when she starts to lay down in bed so she coughed for a few coughs and after that her wheezing was resolved. She has also alternating diarrhea and constipation. She has also alternating diarrhea and constipation. She has neuropathy in her hands and feet. She is weak, tired and fatigued. PAST MEDICAL HISTORY 1. Shingles. 2. Bronchitis. PAST SURGICAL HISTORY 1. Appendectomy. 2. Eye surgery. 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 She drinks one to two drinks per month. She smokes a pack per day for 35 years and is trying to quit. She does not chew or utilize recreational drugs. FAMILY HISTORY Mother with bilateral breast cancer. MEDICATIONS 1. Gabapentin 300 mg three times daily. 2. Levothyroxine 75 mcg daily. 3. Namenda 5 mg daily. 4. Ativan 1 mg p.r.n. q.4-6h. for anxiety or nausea or vomiting. 5. Zofran 8 mg q.12h. p.r.n. for nausea and vomiting. ALLERGIES NONE. REVIEW OF SYSTEMS CONSTITUTIONAL: No appetite or weight change. No fever, chills or sweating. No recent infection. HEENT: Ears: No tinnitus or hearing problem. Nose: She has runny nose. Throat: No sore throat or mouth ulcers. Eyes: No diplopia or visual changes. RESPIRATORY: She has cough and occasional wheezing. CARDIOVASCULAR: No chest pain, orthopnea, or paroxysmal nocturnal dyspnea (PND). No edema. No palpitations. GASTROINTESTINAL: She has alternating diarrhea and constipation. GENITOURINARY: No hematuria or dysuria. MUSCULOSKELETAL: She has occasional pain in the hips. NEUROLOGICAL: She has neuropathy in her hands and feet. HEMATOLOGIC/LYMPHATIC: She is weak, tired and fatigued. SKIN: No skin rash or lumps. PSYCHIATRIC: No anxiety or depression. PHYSICAL EXAMINATION GENERAL: Looks stable. Well-developed, well-nourished, and in no acute distress. VITAL SIGNS: Blood pressure 143/74, pulse 62 per minute, respirations 16 per minute, temperature 98.2, pulse ox 90% on room air. HEENT: Head: Atraumatic. No sinus tenderness to palpation. Eyes: No icterus or conjunctivitis. Mouth and throat: No oral thrush or mucositis. NECK: Supple. No cervical or supraclavicular lymphadenopathy. LUNGS: Clear to auscultation and percussion bilaterally. HEART: Regular rate and rhythm. No gallops, murmurs, clicks or rubs. ABDOMEN: Soft and lax. No tenderness. No hepatosplenomegaly. No masses. EXTREMITIES: No cyanosis, clubbing or edema. LYMPHATICS: No peripheral lymphadenopathy. NEUROLOGICAL: Conscious, alert and oriented times three. No focal motor or sensory deficits. PSYCHIATRIC: Mood and affect appear normal. SKIN: No skin rash, bruise or purpuric eruption. DIAGNOSTIC DATA CBC showed white count 4.8, hemoglobin 14.1, hematocrit 42.3, platelets 145,000. Chem panel totally normal except sodium 134, creatinine 1.3, alkaline phosphatase 144, TSH 4.41. Chest x-ray on March 24, 2019 showed no acute cardiopulmonary process. ASSESSMENT 1. Right cavitary mass of the right upper lobe diagnosed by PET scan February 14, 2015. The size was 4.2 cm with SUV of 6.4. CT-guided biopsies on March 16, 2015 and April 02, 2015 came back positive for malignancy. Repeat CT March 10, 2016 and November 24, 2016 showed that that mass was stable in size without any change. It looks as if this is actually a scarring mass. CT scan on December 07, 2017 and July 07, 2018, and December 30, 2018, all showed that the area in the right apex is stable, looks like a fibrotic scar. She is currently doing very well. 2. Extensive stage small cell lung cancer with brain metastasis. Patient received six cycles of cisplatin and GLUING PRESSMAN-16 between February 27, 2014 through August 17, 2014. She received radiation therapy of the lung masses, completed May 15, 2014, and repeat PET scan July 10, 2015, did reveal residual mass decreased in size from 8.8 to 6 cm with residual SUV of 3. Patient received two more cycles of chemotherapy with cisplatin and GLUING PRESSMAN-16 completed August 17, 2014 and the nodule shrank from 4 cm to 3.4 cm with SUV drop from 3 to 2.2. PET scan on February 14, 2015 showed that the SUV increased from 2.2 to 2.9. There was a new cavitary mass in the right upper lobe of the lung which was biopsied and the biopsy came back negative for malignancy. Her current chest x-ray did not show any acute changes in her chest. I am planning to continue followup. I will see her again in three months with CBC, chem panel and CT scan of the chest at that time. 3. Hypothyroidism, on Synthroid 50 mcg. Current TSH is 4.41. We will continue the same. 4. Chemotherapy-induced neuropathy. We will continue gabapentin. 5. Brain metastasis of the left cerebellum, status post radiation therapy. MRI on July 02, 2018 showed left cerebellar metastasis treated without residual enhancement. She is currently having imbalance after her treated metastasis and patient is currently taking physical therapy for that. PLAN 1. Continue followup. 2. Patient to return in three months with CBC, chem panel and CT chest. 3. Patient is to contact us for any new concerns or complaints. [facility]
== END ==
LOC: SPU 01-07 08:15 → ONC 11:18
PROVIDERS: ATTEND Internal Medicine Hematology
DX: C34.12 Malignant neoplasm of upper lobe, left bronchus or lung (principal); C79.31 Secondary malignant neoplasm of brain; Z92.3 Personal history of irradiation; Z92.21 Personal history of antineoplastic chemotherapy; E03.9 Hypothyroidism, unspecified; Z79.899 Other long term (current) drug therapy; G62.0 Drug-induced polyneuropathy; F17.210 Nicotine dependence, cigarettes, uncomplicated
CPT/HCPCS: 36592; 71046; 84443; 85025; 96523; G0463; J1642; 82040; 82247; 82310; 82374; 82435; 82565; 82947; 84075; 84132; 84155; 84295; 84450; 84460; 84520; 99212

== ENCOUNTER → 2019-04-21 | Outpatient (RCR) | payer MEDICARE, OTHER ==
--- NOTE | 2019-01-21 16:38 | PT INITIAL EVALUATION ---
MEDICAL DIAGNOSIS: Decreased Balance, Abnormality of Gait, Frequent Falls TREATMENT DIAGNOSIS: Decreased Balance, Abnormality of Gait, Frequent Falls DATE OF ONSET: 01/21/19 SUBJECTIVE: Mavis is a 68 year old female presenting to physical therapy following frequent falls. Pt has been seen in PT before but reports poor compliance with HEP to maintain strength and balance. Pt reports that most falls occur with turning with her getting dizzy and falling. Despite frequent falls pt reports no injury. Pt reports that dizziness comes and goes typically corresponding to when she forgets to take her medications. Pt reports that she is very forgetful. REHAB PROBLEM LIST: Decreased Strength Decreased Endurance Decreased Balance Decreased Function Decreased ADL's Decreased Mobility Decreased Gait PREVIOUS MEDICAL HISTORY: See EMR OBJECTIVE: Strength: LE MMT (R,L): Hip: flexion: 4-/5, 3+/5, ext: 4/5 B, Abd: 4/5, 4-/5, add: 4/5 B. Knee: ext: 4/5 B, flexion: 4-/5 B, ankle: DF: 4+/5, 4/5, PF: 4/5 B Special Tests: Tinetti Assessment: Gait: Gait significant for shortened step length and clearance B with occasional use of SPC. Turning consists of several shortened steps with pt turning on heels and never picking feet up. Balance: 4 stage balance test maximal hold: tandem: L fwd: 4 seconds, R fwd: 2 seconds, SLS: B unable to obtain position. ASSESSMENT: Mavis shows signs and symptoms consistent with decreased balance and abnormality of gait resulting in frequent falling. Physical therapy is indicated to address the above listed impairments to improve pt function with ADL's and decrease risk of falls. Short Term Goals In 3 weeks pt will be able to perform 4 stage balance test with tandem stance at 10 seconds B for improved functional balance with ADL's to decrease fall risk. In 6 weeks pt will be able to perform 4 stage balance test with SL stance at 3 seconds B for improved functional balance with ADL's to decrease fall risk. In 6 weeks pt will be able to perform a 360 degree turn in less than 6 steps each leg for improved functional mobility with ADL's. In 6 weeks pt will improve B hip strength to 4/5 for improved function with ADL's. Patient's Goals Improve balance to decrease fall risk. PLAN: Patient to be seen for Manual Therapy/STM/MET Strengthening/condition Range of Motion Stretching Neuromuscular Re-ed Closed Chain Program Posture/Body mechanics Gait Trg/Balance Trg Home Exercise Program Therapeutic Activities 3x/Week for 6 Weeks If you have any questions, comments, or concerns about this report or plan, please contact me at . Thank you, Dorinda Klein, PT, DPT, CLT MTDD
--- NOTE | 2019-03-23 16:42 | PT PLAN OF CARE ---
Physician: Meena Mota, LINE SERVER, ODD PIECE CHECKER Patient is being seen: 4x/Week Therapist: Dorinda Klein, PT, DPT, CLT Medical Diagnosis: Decreased Balance, Abnormality of Gait, Frequent Falls Treatment Diagnosis: Decreased Balance, Abnormality of Gait, Frequent Falls Date of Onset: 01/21/19 Date of Initial Evaluation: 01/21/19 Date patient was last seen: 03/23/19 Number of treatments: 17 Number of cancellations/No shows: 3 INTERVENTIONS: Manual Therapy/STM/MET Strengthening/condition Range of Motion Stretching Neuromuscular Re-ed Closed Chain Program Posture/Body mechanics Gait Trg/Balance Trg Home Exercise Program Therapeutic Activities GOALS: In 3 weeks pt will be able to perform 4 stage balance test with tandem stance at 10 seconds B for improved functional balance with ADL's to decrease fall risk. MET In 6 weeks pt will be able to perform 4 stage balance test with SL stance at 3 seconds B for improved functional balance with ADL's to decrease fall risk. In Progress In 6 weeks pt will be able to perform a 360 degree turn in less than 6 steps each leg for improved functional mobility with ADL's. In Progress In 6 weeks pt will improve B hip strength to 4/5 for improved function with ADL's. In Progress PATIENT'S GOAL: Improve balance to decrease fall risk. Status of Patient's Goals: 1/ MET, 3/4 In Progress Patient Compliance: Poor Prognosis: Fair Reasons for continuing therapy: Mavis shows mild improvements in balance and gait mechanics with increased frequency of treatment. Pt remains to have cognitive dysfunction with decreased memory resulting in frequent missed sessions. However, with increased repetition pt shows improved gait mechanics with SPC progressing to a two point gait pattern prior to fatigue. Balance remains variable day to day but shows gradual improvements with increased weight shift. Further Pt goals are to work on turning and going down hills when LOB most often occur. Strength: LE MMT (R,L): Hip: flexion: 4-/5, 4-/5, ext: 4+/5, 4/5, Abd: 4/5, 4/5, add: 4/5 B. Knee: ext: 4/5 B, flexion: 4+/5, 4/5, ankle: DF: 4+/5, 4/5, PF: 4+/5, 4/5 Special Tests: Tinetti Assessment: Balance: , Gait: 08/13, Total Combined: Gait: Pt is able to ambulate with a step through gait pattern for 6 strides in a row prior to needing a break or having a shuffling step. Turning consists of several shortened steps with pt turning on heels and never picking feet up. Balance: 4 stage balance test maximal hold: tandem: L fwd: 20 seconds, R fwd: 19 seconds, SLS: B 2 seconds. If you have any questions, comments, or concerns about this report or plan, please contact me at . Thank you, Dorinda Klein, PT, DPT, CLT MTDD
--- NOTE | 2019-04-20 09:41 | PT PLAN OF CARE ---
Physician: Meena Mota, SEARCH MARKETING COORDINATOR, BATTERY ASSEMBLER DRY CELL Patient is being seen: 4x/Week Therapist: Dorinda Klein, PT, DPT, CLT Medical Diagnosis: Decreased Balance, Abnormality of Gait, Frequent Falls Treatment Diagnosis: Decreased Balance, Abnormality of Gait, Frequent Falls Date of Onset: 01/21/19 Date of Initial Evaluation: 01/21/19 Date patient was last seen: 04/19/19 Number of treatments: 30 Number of cancellations/No shows: 4 INTERVENTIONS: Manual Therapy/STM/MET Strengthening/condition Range of Motion Stretching Neuromuscular Re-ed Closed Chain Program Posture/Body mechanics Gait Trg/Balance Trg Home Exercise Program Therapeutic Activities GOALS: In 3 weeks pt will be able to perform 4 stage balance test with tandem stance at 10 seconds B for improved functional balance with ADL's to decrease fall risk. MET In 6 weeks pt will be able to perform 4 stage balance test with SL stance at 3 seconds B for improved functional balance with ADL's to decrease fall risk. MET In 6 weeks pt will be able to perform a 360 degree turn in less than 6 steps each leg for improved functional mobility with ADL's. In Progress In 6 weeks pt will improve B hip strength to 4/5 for improved function with ADL's. MET PATIENT'S GOAL: Improve balance to decrease fall risk. Status of Patient's Goals: 3/4 MET, 1/4 In Progress Patient Compliance: Poor Prognosis: Fair Reasons for continuing therapy: With increased frequency of visits, Mavis is starting to show improvements in gait and stability as well as strength. Pt shows improved gait mechanics with SPC with step through pattern and equal step length prior to fatigue with cuing. With fatigue pt remains to have frequent shortened step length and shuffling. Balance is transient between sessions with no noticeable significant improvements over the last couple weeks. Further PT to continue with gait training for fall prevention as well as improved functional strength for transfers. Strength: LE MMT (R,L): Hip: flexion: 5-/5, 4+/5, ext: 4+/5, 4+/5, Abd: 4+/5, 4+/5, add: 4/5 B. Knee: ext: 4+/5 B, flexion: 4+/5, 4/5, ankle: DF: 4+/5, 4+/5, PF: 4+/5, 4+/5 Special Tests: Tinetti Assessment: Balance: , Gait: 08/13, Total Combined: Gait: Pt is able to ambulate with a step through gait pattern for 6 strides in a row prior to needing a break or having a shuffling step. Turning consists of several shortened steps with pt turning on heels and never picking feet up. Balance: 4 stage balance test maximal hold: tandem: L fwd: 20 seconds, R fwd: 19 seconds, SLS: B 2 seconds. If you have any questions, comments, or concerns about this report or plan, please contact me at . Thank you, Dorinda Klein, PT, DPT, CLT Referring Provider Signature: Date: MTDD
[~2019-04-21] MED LIST changes: -ALTEPLASE RECOMB 2 MG VIAL IVP PRN; -DEXTROSE 5%(*) 100 ML BAG 100 ML IVPB PRN; -NS(*) 0.9% 100 ML BAG 100 ML IVPB PRN; -NS(*) 0.9% 500 ML BAG 500 ML IV PRN; -WATER FOR INJ,STERILE 20 ML IVP PRN
== END ==
LOC: PT 01-21 12:54
PROVIDERS: ATTEND Nurse Practitioner
DX: R26.89 Other abnormalities of gait and mobility (principal); R29.6 Repeated falls
CPT/HCPCS: 97161

== ENCOUNTER 2019-04-28 10:30 | Outpatient (RCR) | payer MEDICARE, OTHER ==
[2019-04-07 11:25] VITALS: BP 143/74
[~2019-04-28 10:30] MED LIST changes: +ALTEPLASE RECOMB 2 MG VIAL IVP PRN; +DEXTROSE 5%(*) 100 ML BAG 100 ML IVPB PRN; +HEPARIN FLSH (PORT) 500 UN/5ML IVP PRN; +LIDOCAINE/SOD BICARB 8.4% SYR ID PRN; +NS(*) 0.9% 100 ML BAG 100 ML IVPB PRN; +NS(*) 0.9% 250 ML BAG 250 ML IVPB PRN; +WATER FOR INJ,STERILE 20 ML IVP PRN
== END 2019-05-25 13:25 | disposition home or self-care (01) ==
LOC: SPU 10:30
PROVIDERS: ATTEND Internal Medicine Hematology
DX: C34.10 Malignant neoplasm of upper lobe, unspecified bronchus or lung (principal)
CPT/HCPCS: 96523; J1642

== ENCOUNTER 2019-04-28 11:45 | Outpatient (RCR) | payer MEDICARE, OTHER ==
--- NOTE | 2019-04-28 07:02 | PT PLAN OF CARE ---
Physician: Meena Mota, MECHANICAL HANDYMAN, TEXTILE ARTIST Patient is being seen: 4x/Week Therapist: Dorinda Klein, PT, DPT, CLT Medical Diagnosis: Decreased Balance, Abnormality of Gait, Frequent Falls Treatment Diagnosis: Decreased Balance, Abnormality of Gait, Frequent Falls Date of Onset: 01/21/19 Date of Initial Evaluation: 01/21/19 Date patient was last seen: 04/27/19 Number of treatments: 34 Number of cancellations/No shows: 5 INTERVENTIONS: Manual Therapy/STM/MET Strengthening/condition Range of Motion Stretching Neuromuscular Re-ed Closed Chain Program Posture/Body mechanics Gait Trg/Balance Trg Home Exercise Program Therapeutic Activities GOALS: In 3 weeks pt will be able to perform 4 stage balance test with tandem stance at 10 seconds B for improved functional balance with ADL's to decrease fall risk. MET In 6 weeks pt will be able to perform 4 stage balance test with SL stance at 3 seconds B for improved functional balance with ADL's to decrease fall risk. MET In 6 weeks pt will be able to perform a 360 degree turn in less than 6 steps each leg for improved functional mobility with ADL's. In Progress In 6 weeks pt will improve B hip strength to 4/5 for improved function with ADL's. MET PATIENT'S GOAL: Improve balance to decrease fall risk. Status of Patient's Goals: 3/4 MET, 1/4 In Progress Patient Compliance: Poor Prognosis: Fair Reasons for continuing therapy: Despite increased frequency Mavis remains to show variation between sessions with generally improved progress but occasional decline from visit to visit secondary to time of day related fatigue. Pt recently had a fall without reported injury resulting in her not attending PT session. The day prior pt demonstrated increased wobbliness with gait without specific reason. Prior to this shortened decline pt showed improved balance and stability with outdoor walking and curb ambulation. Further PT to continue to progress gait while decreasing fall risk with ADL's. Strength: LE MMT (R,L): Hip: flexion: 5-/5, 4+/5, ext: 4+/5, 4+/5, Abd: 4+/5, 4+/5, add: 4/5 B. Knee: ext: 4+/5 B, flexion: 4+/5, 4/5, ankle: DF: 4+/5, 4+/5, PF: 4+/5, 4+/5 Special Tests: Tinetti Assessment: Balance: , Gait: 08/13, Total Combined: Gait: Pt is able to ambulate with a step through gait pattern for 6 strides in a row prior to needing a break or having a shuffling step. Pt is able to turn with 180 degrees in 4 steps with cuing Balance: 4 stage balance test maximal hold: tandem: L fwd: 20 seconds, R fwd: 19 seconds, SLS: B 2 seconds. If you have any questions, comments, or concerns about this report or plan, please contact me at . Thank you, Dorinda Klein, PT, DPT, CLT Referring Provider Signature: Date: MTDD
[~2019-04-28 11:45] MED LIST changes: -ALTEPLASE RECOMB 2 MG VIAL IVP PRN; -DEXTROSE 5%(*) 100 ML BAG 100 ML IVPB PRN; -HEPARIN FLSH (PORT) 500 UN/5ML IVP PRN; -LIDOCAINE/SOD BICARB 8.4% SYR ID PRN; -NS(*) 0.9% 100 ML BAG 100 ML IVPB PRN; -NS(*) 0.9% 250 ML BAG 250 ML IVPB PRN; -WATER FOR INJ,STERILE 20 ML IVP PRN
== END 2019-04-28 18:00 | disposition home or self-care (01) ==
LOC: PT 11:45
PROVIDERS: ATTEND Nurse Practitioner
DX: R26.89 Other abnormalities of gait and mobility (principal); R29.6 Repeated falls

== ENCOUNTER → 2019-05-02 | Outpatient (CLI) | payer MEDICARE, OTHER ==
--- NOTE | 2019-05-02 11:42 | RADIOLOGY IMAGING REPORT ---
FACILITY: [facility] - [place] PATIENT NAME: Mavis Owusu : 1950 MR: [id number] V: [id number] EXAM DATE: ORDERING PHYSICIAN: GHAZAL LAND TECHNOLOGIST: Location: [facility] - [place] Patient: Mavis Owusu : 1950 Visit/Account:[id number] Date of Sevice: 05/02/2019 Exam type: HIP LEFT History: Fell one week ago on left hip with pain and difficulty lifting leg Comparison: None. Findings: Two views were submitted There mild degenerative changes at the left hip joint. There is no evidence of acute fracture or dis location. Incidentally noted are moderate degenerative changes at the pubic symphysis and in the low er lumbar spine. Moderate vascular calcifications are also noted within the pelvis IMPRESSION: 1. No gross evidence of acute fracture-dislocation involving the left hip Report Dictated By: Gloria Squires MD at 05/02/2019 11:35 AM Report E-Signed By: Gloria Squires MD at 05/02/2019 11:36 AM WSN:[email or web address]
== END ==
LOC: RAD 04-30 11:52
PROVIDERS: ATTEND Family Medicine
DX: M25.552 Pain in left hip (principal)

== ENCOUNTER → 2019-05-20 | Outpatient (CLI) | payer MEDICARE, OTHER | LOC: RESP 03:38 | PROVIDERS: ATTEND Family Medicine | DX: R55 Syncope and collapse (principal); W19.XXXD Unspecified fall, subsequent encounter | CPT/HCPCS: 93306 ==

== ENCOUNTER → 2019-05-26 | Outpatient (CLI) | payer MEDICARE, OTHER ==
[~2019-05-26] MED LIST changes: +REGADENOSON 0.4 MG/5 ML SYR ONE
--- NOTE | 2019-05-26 18:46 | RADIOLOGY IMAGING REPORT ---
FACILITY: [facility] - [place] PATIENT NAME: Mavis Owusu : 1950 MR: [id number] V: [id number] EXAM DATE: ORDERING PHYSICIAN: GHAZAL LAND TECHNOLOGIST: [place] [facility] [place]avis Owusu : 1950 Visit/Account:[id number] Date of Sevice: 05/26/2019 EXAMINATION: Single isotope SPECT imaging with regadenoson infusion and gated SPECT imaging. DATE OF EXAMINATION: 05/26/2019. DATE OF INTERPRETATION: 05/26/2019. REQUESTING PHYSICIAN: GHAZAL LAND. INDICATION: The patient is a 69-year-old female evaluated for "history of falling". PROCEDURE: After informed consent the patient received an intravenous injection of 11.9 mCi of Tc-99 m sestamibi followed at an appropriate time interval by rest imaging. The patient then subsequently received an intravenous infusion of 0.4 mg of regadenoson per protocol without complication. Resting heart rate was 51 bpm with a peak heart rate of 62 bpm. Blood pressure at rest was 124 / 75 and fol lowing infusion was 130 / 70. Baseline EKG demonstrates normal sinus rhythm, no ST or T-wave abnorma lities. There were no EKG changes of ischemia following infusion. Symptoms were nonspecific. The p atient then received an intravenous injection of 29.8 mCi of Tc-99m sestamibi followed by stress imag ing. RAW DATA: Examination of the summed raw data revealed a good quality study. MYOCARDIAL PERFUSION: The tomographic images demonstrate normal baseline images, mild anterior defec t with stress which corrects with prone suggesting breast attenuation artifact. GATED IMAGES: The gated images demonstrate hyperdynamic wall motion, ejection fraction 78%. IMPRESSION: 1. Good quality study with mild breast attenuation artifact with stress. 2. Otherwise normal myocardial perfusion scan. 3. Hyperdynamic LV systolic function; LVEF 78%. 4. Based on the results of this exam, the patient appears to be at low risk for future cardiovascular events but remains intermediate risk due to inability to exercise. Report Dictated By: Randell Martínez at 05/26/2019 6:34 PM Report E-Signed By: Randell Martínez at 05/26/2019 6:38 PM WSN:[id number]
== END ==
LOC: NUC 00:26
PROVIDERS: ATTEND Family Medicine
DX: W19.XXXD Unspecified fall, subsequent encounter (principal)
CPT/HCPCS: 78452; 93017; A9500; J2785